=== PATIENT | female | born 1945 | race Caucasian/White ===

== ENCOUNTER 2017-07-23 13:37 | Emergency (ER) | payer MEDICARE ==
[2017-07-23 14:00] VITALS: BP 130/72
--- NOTE | 2017-07-23 14:16 | ED Physician Documentation ---
PD HPI SKIN - Stated complaint Stated Complaint: ARM SWOLLEN/VACCINATION AREA - Chief complaint Chief Complaint: Wound - History obtained from History obtained from: Patient - History of Present Illness Timing - onset: Other (71-year-old woman new to the area with history of fibromyalgia, she had the second of 2 Pneumovax shots to the right deltoid yesterday and immediately had pain and redness and warmth there without fevers. She has difficulty lifting her arm because of the pain but it is not too bad at rest and she did not sleep well because of it. There is no associated chest pain, shortness of breath.) Review of Systems Constitutional: denies: Fever, Chills Cardiac: denies: Chest pain / pressure, Palpitations Respiratory: denies: Dyspnea, Cough PD PAST MEDICAL HISTORY - Present Medications Home Medications: Ambulatory Orders Medication Instructions Recorded Confirmed Gabapentin [Neurontin] 200 mg PO DAILY PM 07/23/17 07/23/17 HYDROcod/ACETAM 5/325 [[place] 5/325] 1 - 2 ea PO Q6H PRN #10 tablet 07/23/17 traZODone [Desyrel] 50 mg PO HS 07/23/17 07/23/17 - Allergies Allergies/Adverse Reactions: Allergies Allergy/AdvReac Type Severity Reaction Status Date / Time aspirin Allergy Unknown Verified 07/23/17 14:00 Iodinated Contrast- Oral and Allergy Unknown Verified 07/23/17 14:00 IV Dye NSAIDS (Non-Steroidal Allergy Unknown Verified 07/23/17 14:00 Anti-Inflamma PD ED PE NORMAL - Vitals Vital signs reviewed: Yes - General General: Alert and oriented X 3, No acute distress - HEENT HEENT: Pharynx benign - Cardiac Cardiac: RRR, No murmur - Respiratory Respiratory: No respiratory distress, Clear bilaterally - Extremities Extremities: Other (Over the right deltoid there is a small patch of redness and swelling consistent with a localized vaccine reaction, no pain out of proportion to exam. She winces when she abducts the right shoulder but is comfortable otherwise at rest.) - Neuro Neuro: Alert and oriented X 3, Normal speech Results - Vitals Vitals: Vital Signs - 24 hr 07/23/17 13:54 Temperature 37.1 C Heart Rate 66 Respiratory 16 Rate Blood Pressure 130/72 O2 Saturation 96 Oxygen O2 Source Room air PD MEDICAL DECISION MAKING - ED course ED course: 71-year-old woman with fibromyalgia presents with a vaccine reaction, localized reaction without evidence of infection. Departure - Departure Disposition: 01 Home, Self Care Clinical Impression: Vaccine reaction Qualifiers: Encounter type: initial encounter Qualified Code(s): T50.Z95A - Adverse effect of other vaccines and biological substances, initial encounter Condition: Good Record reviewed to determine appropriate education?: Yes Prescriptions: HYDROcod/ACETAM 5/325 [[place] 5/325] 1 - 2 ea PO Q6H PRN #10 tablet PRN Reason: Pain Comments: Return for fever, if not better in a few days or if worsening. Call your doctor to arrange a follow-up appointment, make the next available appointment. In the interim, return anytime if worse or if new symptoms develop. Do not drink or drive while taking narcotic pain medication. Note that many narcotic pain relievers also contain Tylenol/acetaminophen. Please ensure that your total dose of acetaminophen from all sources does not exceed 3 g (3000 mg) per day. You may get constipated while on this medication. Take a stool softener such as Colace twice a day while you are on it. Also add an aegv-ruo-mcoqwwx laxative such as senna or MiraLAX on any day that you do not have a bowel movement. If you received a narcotic pain medication or sedative while in the emergency department, do not drive for the next 24 hours.
== END 2017-07-23 14:21 | disposition home or self-care (01) ==
LOC: ED 13:37
DX: M79.89 Other specified soft tissue disorders (principal); T50.Z95A Adverse effect of other vaccines and biological substances, initial encounter
CPT/HCPCS: 99283

== ENCOUNTER 2017-08-04 08:30 | Emergency (ER) | payer MEDICARE ==
[2017-08-04] MEDS ORDERED: ONDANSETRON 4 MG/2 ML VIAL IVP STA (08:57)
[2017-08-04] MEDS ORDERED: MORPHINE 10 MG/ML VIAL IVP STA (08:57)
--- NOTE | 2017-08-04 09:00 | ED Physician Documentation ---
History of Present Illness - Stated complaint Stated Complaint: BODY PAIN - Chief complaint Chief Complaint: General - Additonal information Additional information: 71-year-old female with history of fibromyalgia presents to the emergency department with left flank pain for approximately 24 hours. She reports that the pain has been constant and severe, she had nausea and vomiting last night. She also reports urinary frequency overnight last night. She had chills but does not feel that she had a fever.She does not have any abdominal pain. She has taken no medication for pain prior to arrival. Review of Systems Constitutional: reports: Chills Cardiac: denies: Chest pain / pressure Respiratory: denies: Dyspnea GI: reports: Vomiting : reports: Frequency. denies: Dysuria, Hematuria Musculoskeletal: reports: Back pain Neurologic: denies: Altered mental status PD PAST MEDICAL HISTORY - Past Medical History Past Medical History: Yes Musculoskeletal: Fibromyalgia - Past Surgical History Past Surgical History: No - Present Medications Home Medications: Ambulatory Orders Medication Instructions Recorded Confirmed Gabapentin [Neurontin] 200 mg PO DAILY PM 07/23/17 08/04/17 traZODone [Desyrel] 50 mg PO HS 07/23/17 08/04/17 Lidocaine Patch 5% [Lidoderm Patch] 1 patch TOP DAILY PRN #10 patch 08/04/17 traMADol [Ultram] 50 mg PO Q6H PRN #10 tablet 08/04/17 - Allergies Allergies/Adverse Reactions: Allergies Allergy/AdvReac Type Severity Reaction Status Date / Time aspirin Allergy Unknown Verified 08/04/17 08:39 Iodinated Contrast- Oral and Allergy Unknown Verified 08/04/17 08:39 IV Dye NSAIDS (Non-Steroidal Allergy Unknown Verified 08/04/17 08:39 Anti-Inflamma - Social History Does the pt smoke?: No Smoking Status: Never smoker Does the pt drink ETOH?: No Does the pt have substance abuse?: No - Immunizations Immunizations are current?: Yes - POLST Patient has POLST: No PD ED PE NORMAL - Vitals Vital signs reviewed: Yes - General General: Alert and oriented X 3, No acute distress - HEENT HEENT: PERRL - Neck Neck: Supple, no meningeal sign - Cardiac Cardiac: RRR, No murmur - Respiratory Respiratory: Clear bilaterally - Abdomen Abdomen: Normal bowel sounds, Soft, Non tender, Non distended - Back Back: Other (left CVA TTP ) - Derm Derm: Warm and dry - Extremities Extremities: No deformity - Neuro Neuro: Alert and oriented X 3 - Psych Psych: Normal mood, Normal affect Results - Vitals Vitals: Vital Signs - 24 hr 08/04/17 08/04/17 08:34 10:08 Temperature 36.9 C 37.1 C Heart Rate 70 56 L Respiratory 18 16 Rate Blood Pressure 145/79 H 144/77 H O2 Saturation 95 95 Oxygen O2 Source Room air - Labs Labs: Laboratory Tests 08/04/17 08/04/17 08/04/17 09:09 09:09 09:09 WBC 8.2 RBC 5.16 Hgb 15.0 Hct 44.4 MCV 86.0 MCH 29.1 MCHC 33.9 RDW 12.9 Plt Count 233 MPV 7.7 L Neut # 6.2 Lymph # 1.5 [place] # 0.5 Eos # 0.0 Baso # 0.1 Absolute Nucleated RBC 0.00 Nucleated RBC % 0.0 Sodium 137 Potassium 4.2 Chloride 99 L Carbon Dioxide 25 Anion Gap 13.0 BUN 14 Creatinine 1.1 H Estimated GFR (MDRD) 49 L Glucose 157 H Calcium 9.4 Total Bilirubin 0.7 AST 23 ALT 14 Alkaline Phosphatase 53 Total Protein 7.9 Albumin 3.9 Globulin 4.0 Albumin/Globulin Ratio 1.0 Urine Color YELLOW Urine Clarity CLEAR Urine pH 7.0 Ur Specific [place] 1.015 Urine Protein NEGATIVE Urine Glucose (UA) NEGATIVE Urine Ketones NEGATIVE Urine Occult Blood NEGATIVE Urine Nitrite NEGATIVE Urine Bilirubin NEGATIVE Urine Urobilinogen 0.2 (NORMAL) Ur Leukocyte Esterase NEGATIVE Urine WBC - Rads (name of study) CT abd pel w/o contrast Radiology: Final report received (IMPRESSION: 1 no acute findings. 2 sigmoid diverticulosis.) PD MEDICAL DECISION MAKING - ED course ED course: Left-sided flank pain and CVA tenderness with urinary frequency. Suspect either UTI with pyelonephritis or nephro or ureterolithiasis given location pain. Low suspicion for abdominal aortic aneurysm or dissection given patient' s well appearance and minimal risk factors. Additionally patient is allergic to iodinated contrast. Will obtain CT without contrast. Patient has a CT that has returned with no acute findings to explain her flank pain, her urinalysis had no evidence of infection.I suspect that this may be acute on chronic pain related to musculoskeletal disease or fibromyalgia. She was given a dose of tramadol and a lidocaine patch in the emergency department. I discussed with her return precautions and follow-up with her primary care doctor for further workup. Departure - Departure Disposition: 01 Home, Self Care Clinical Impression: Back pain Qualifiers: Back pain location: thoracic back pain Chronicity: acute Back pain laterality: left Qualified Code(s): M54.6 - Pain in thoracic spine Vomiting Qualifiers: Vomiting type: unspecified Vomiting Intractability: non-intractable Condition: Good Instructions: ED Chronic Pain Management, ED Abdominal Pain Unkn Cause Prescriptions: Lidocaine Patch 5% [Lidoderm Patch] 1 patch TOP DAILY PRN #10 patch PRN Reason: Pain traMADol [Ultram] 50 mg PO Q6H PRN #10 tablet PRN Reason: Pain Comments: Make an appointment follow-up with your primary care doctor this week. We did not find an exact cause for your pain, your head CT did not show any kidney stones and your urine test did not show evidence of infection. This may be an exacerbation or flareup of her chronic pain. You should talk to your doctor about management of chronic pain. There may be more testing that your doctor could perform to try to figure out what is causing her pain. Return to the emergency department if you develop severe pain, vomiting, fevers , inability to eat or drink.
[2017-08-04] MEDS ORDERED: MORPHINE 2 MG/ML SYRINGE ONE (09:06)
[2017-08-04] MEDS ORDERED: ONDANSETRON 4 MG/2 ML VIAL ONE (09:06)
[2017-08-04 09:23] LABS: BASOPHILS # (AUTO) 0.1 10^3/uL (0.0-0.1); BASOPHILS % (AUTO) 0.7 %; EOSINOPHILS % (AUTO) 0.5 %; HCT - HEMATOCRIT 44.4 % (37.0-47.0); LYMPHOCYTES # (AUTO) 1.5 10^3/uL (1.5-3.5); MEAN CORPUSCULAR HEMOGLOBIN 29.1 pg (27.0-31.0); MEAN CORPUSCULAR HGB CONC 33.9 g/dL (32.0-36.0); MEAN PLATELET VOLUME 7.7 fL (7.9-10.8); MONOCYTES # (AUTO) 0.5 10^3/uL (0.0-1.0); MONOCYTES % (AUTO) 5.8 %; NEUTROPHILS # (AUTO) 6.2 10^3/uL (1.5-6.6); RED BLOOD COUNT 5.16 10^6/uL (4.20-5.40); RED CELL DISTRIBUTION WIDTH 12.9 % (12.0-15.0); UNCORRECTED WHITE BLOOD COUNT 8.2 x10^3/uL; WHITE BLOOD COUNT 8.2 x10^3/uL (4.8-10.8)
[2017-08-04 09:34] LABS: BILIRUBIN,URINE NEGATIVE (NEGATIVE)
--- NOTE | 2017-08-04 09:46 | CT Preliminary Report ---
Exam: CT ABDOMEN/PELVIS W/O IMPRESSION: 1. No acute findings. 2. Sigmoid diverticulosis. [facility] SITE ID: [id number]
--- NOTE | 2017-08-04 09:49 | CT Report ---
EXAM: CT ABDOMEN AND PELVIS EXAM DATE: 08/04/2017 09:31 AM. CLINICAL HISTORY: Left flank pain COMPARISONS: None. TECHNIQUE: Routine helical CT imaging was performed through the abdomen and pelvis. IV contrast: None . Enteric contrast: No. Reconstructions: Coronal and sagittal. In accordance with CT protocol optimization, one or more of the following dose reduction techniques w ere utilized for this exam: automated exposure control, adjustment of mA and/or KV based on patient s ize, or use of iterative reconstructive technique. FINDINGS: Lung Bases: Unremarkable. Liver: Normal. No masses. Gallbladder/Bile Ducts: Unremarkable. Spleen: Normal. Pancreas: Normal. Adrenal Glands: Normal. Kidneys: Normal. No masses or hydronephrosis. No stones. Peritoneal Cavity/Bowel: Sigmoid diverticulosis is present. No dilatation. The appendix is well visua lized and normal. Pelvic Organs: Hysterectomy has been performed. The bladder is unremarkable. Vasculature: Arterial calcifications indicate atherosclerosis. Aortic calcifications are seen. Bones: No significant abnormality. Other: None. IMPRESSION: 1. No acute findings. 2. Sigmoid diverticulosis. [facility] Referring Provider Line: [phone] SITE ID: [id number]
[2017-08-04 09:51] LABS: BILIRUBIN,TOTAL 0.7 mg/dL (0.2-1.0); CALCIUM 9.4 mg/dL (8.5-10.3); CREATININE 1.1 mg/dL (0.4-1.0); POTASSIUM 4.2 mmol/L (3.5-5.0); TOTAL PROTEIN 7.9 g/dL (6.7-8.2)
[2017-08-04 10:09] VITALS: BP 144/77
[2017-08-04] MEDS ORDERED: traMADol 50 MG TABLET PO STA (10:36)
[2017-08-04] MEDS ORDERED: ACETAMINOPHEN 325 MG TABLET PO STA (10:36)
[2017-08-04] MEDS ORDERED: traMADol 50 MG TABLET PO ONE (10:45)
[2017-08-04] MEDS ORDERED: ACETAMINOPHEN 325 MG TABLET PO ONE (10:45)
== END 2017-08-04 10:57 | disposition home or self-care (01) ==
LOC: ED 08:30
DX: M54.6 Pain in thoracic spine (principal); R10.32 Left lower quadrant pain; R11.2 Nausea with vomiting, unspecified; M79.7 Fibromyalgia; G89.29 Other chronic pain
CPT/HCPCS: 36415; 74176; 80053; 81001; 85025; 96374; 96375; 99283; A9270; J2270

== ENCOUNTER 2017-08-09 18:51 | Emergency (ER) | payer MEDICARE ==
[2017-08-09 19:18] LABS: BASOPHILS # (AUTO) 0.1 10^3/uL (0.0-0.1); BASOPHILS % (AUTO) 0.7 %; EOSINOPHILS % (AUTO) 0.4 %; HCT - HEMATOCRIT 46.8 % (37.0-47.0); HGB - HEMOGLOBIN 15.4 g/dL (12.0-16.0); LYMPHOCYTES # (AUTO) 0.9 10^3/uL (1.5-3.5); LYMPHOCYTES % (AUTO) 10.4 %; MEAN CORPUSCULAR HEMOGLOBIN 28.4 pg (27.0-31.0); MEAN CORPUSCULAR VOLUME 86.1 fL (81.0-99.0); MEAN PLATELET VOLUME 7.5 fL (7.9-10.8); MONOCYTES # (AUTO) 0.9 10^3/uL (0.0-1.0); MONOCYTES % (AUTO) 10.6 %; NEUTROPHILS # (AUTO) 6.7 10^3/uL (1.5-6.6); NEUTROPHILS % (AUTO) 77.9 %; RED BLOOD COUNT 5.44 10^6/uL (4.20-5.40); RED CELL DISTRIBUTION WIDTH 13.3 % (12.0-15.0); UNCORRECTED WHITE BLOOD COUNT 8.6 x10^3/uL; WHITE BLOOD COUNT 8.6 x10^3/uL (4.8-10.8)
[2017-08-09] MEDS ORDERED: ONDANSETRON ODT 4 MG Prepack 2 TL STA (19:25)
[2017-08-09] MEDS ORDERED: GABAPENTIN 100 MG CAPSULE PO STA (19:25)
[2017-08-09] MEDS ORDERED: valACYclovir 500 MG TABLET PO STA (19:25)
[2017-08-09] MEDS ORDERED: ONDANSETRON ODT 4 MG TABLET TL STA (19:25)
--- NOTE | 2017-08-09 19:27 | ED Physician Documentation ---
PD HPI ABD PAIN - Stated complaint Stated Complaint: SOA/BACK PX/V - Chief complaint Chief Complaint: Resp - History obtained from History obtained from: Patient - History of Present Illness Timing - onset: Other (She has had ongoing pain in the left side of the abdomen for about a week now. She was seen here earlier this week, concern for kidney stone because it started in the left flank, CT scan was negative except for diverticulosis. She continues to have pain and she feels achy and febrile and vomiting at times. She is a little constipated but she is not eating well.) Review of Systems Constitutional: reports: Chills, Myalgias, Fatigue Nose: reports: Rhinorrhea / runny nose. denies: Congestion Cardiac: denies: Chest pain / pressure, Palpitations Respiratory: denies: Dyspnea, Cough GI: reports: Abdominal Pain, Nausea, Vomiting. denies: Diarrhea PD PAST MEDICAL HISTORY - Past Medical History Musculoskeletal: Fibromyalgia - Past Surgical History Past Surgical History: No - Present Medications Home Medications: Ambulatory Orders Medication Instructions Recorded Confirmed Gabapentin [Neurontin] 200 mg PO DAILY PM 07/23/17 08/09/17 traZODone [Desyrel] 50 mg PO HS 07/23/17 08/09/17 Acyclovir 800 mg PO 5XD 10 Days tablet 08/09/17 Gabapentin 300 mg PO TID #90 capsule 08/09/17 Oxycodone HCl/Acetaminophen 1 - 2 tab PO Q4H PRN #15 tablet 08/09/17 [Percocet 5-325 mg Tablet] - Allergies Allergies/Adverse Reactions: Allergies Allergy/AdvReac Type Severity Reaction Status Date / Time aspirin Allergy Unknown Verified 08/09/17 19:03 Iodinated Contrast- Oral and Allergy Unknown Verified 08/09/17 19:03 IV Dye NSAIDS (Non-Steroidal Allergy Unknown Verified 08/09/17 19:03 Anti-Inflamma - Social History Does the pt smoke?: No Smoking Status: Never smoker Does the pt drink ETOH?: No Does the pt have substance abuse?: No - Immunizations Immunizations are current?: Yes - POLST Patient has POLST: No PD ED PE NORMAL - Vitals Vital signs reviewed: Yes - General General: Alert and oriented X 3, No acute distress - Neck Neck: Supple, no meningeal sign, No bony TTP - Cardiac Cardiac: RRR, No murmur - Respiratory Respiratory: No respiratory distress, Clear bilaterally - Abdomen Abdomen: Normal bowel sounds, Soft, Non tender, Other (She has a clear area of herpes zoster extending along the left mid abdomen.) - Extremities Extremities: No deformity, No tenderness to palpate, No calf tenderness / cord - Neuro Neuro: Alert and oriented X 3, Normal speech - Psych Psych: Normal mood, Normal affect Results - Vitals Vitals: Vital Signs - 24 hr 08/09/17 18:57 Temperature 37.2 C Heart Rate 99 Respiratory 18 Rate Blood Pressure 150/81 H O2 Saturation 94 Oxygen O2 Source Room air - EKG (time done) 1907 Rate: Rate (enter#) (65) Rhythm: NSR [place]: Normal Intervals: Normal [place] QRS: Normal Ischemia: Q waves (III/F) - Labs Labs: Laboratory Tests 08/09/17 19:13 WBC 8.6 RBC 5.44 H Hgb 15.4 Hct 46.8 MCV 86.1 MCH 28.4 MCHC 33.0 RDW 13.3 Plt Count 248 MPV 7.5 L Neut # 6.7 H Lymph # 0.9 L [place] # 0.9 Eos # 0.0 Baso # 0.1 Absolute Nucleated RBC 0.00 Nucleated RBC % 0.0 PD MEDICAL DECISION MAKING - ED course ED course: She had undifferentiated abdominal pain which is now declared itself as herpes zoster. For which she is treated. Steroids are held given the history of diabetes, this is not active now, on previous evaluation her blood sugar was in the 150s, I believe that this makes the risk of steroid treatment outweigh the benefits. Departure - Departure Disposition: 01 Home, Self Care Clinical Impression: Herpes zoster Qualifiers: Herpes zoster complications: without complications Qualified Code(s): B02.9 - Zoster without complications Condition: Good Record reviewed to determine appropriate education?: Yes Instructions: ED Shingles Prescriptions: Acyclovir 800 mg PO 5XD 10 Days tablet Gabapentin 300 mg PO TID #90 capsule Oxycodone HCl/Acetaminophen [Percocet 5-325 mg Tablet] 1 - 2 tab PO Q4H PRN #15 tablet PRN Reason: Pain Comments: Call your doctor to arrange a follow-up appointment, make the next available appointment. In the interim, return anytime if worse or if new symptoms develop. Your blood pressure was elevated today on check into the emergency department. This does not mean that you have hypertension, it is a common phenomenon to come to the emergency department and have elevated blood pressure. I recommend that you see your primary care physician within the week to have it rechecked when you are feeling better. Do not drink or drive while taking narcotic pain medication. Note that many narcotic pain relievers also contain Tylenol/acetaminophen. Please ensure that your total dose of acetaminophen from all sources does not exceed 3 g (3000 mg) per day. You may get constipated while on this medication. Take a stool softener such as Colace twice a day while you are on it. Also add an jful-thy-rwvecoh laxative such as senna or MiraLAX on any day that you do not have a bowel movement. If you received a narcotic pain medication or sedative while in the emergency department, do not drive for the next 24 hours.
[2017-08-09 19:31] LABS: ALBUMIN/GLOBULIN RATIO 1.1 (1.0-2.2); BILIRUBIN,TOTAL 1.3 mg/dL (0.2-1.0); CALCIUM 9.4 mg/dL (8.5-10.3); CREATININE 1.2 mg/dL (0.4-1.0); POTASSIUM 3.5 mmol/L (3.5-5.0); TOTAL PROTEIN 7.5 g/dL (6.7-8.2)
[2017-08-09] MEDS ORDERED: ONDANSETRON ODT 4 MG Prepack 2 TL ONE (19:46)
[2017-08-09] MEDS ORDERED: valACYclovir 500 MG TABLET ONE (19:46)
[2017-08-09] MEDS ORDERED: ONDANSETRON ODT 4 MG TABLET ONE (19:46)
[2017-08-09] MEDS ORDERED: GABAPENTIN 300 MG CAPSULE ONE (19:46)
[2017-08-09 19:53] VITALS: BP 152/77
== END 2017-08-09 20:08 | disposition home or self-care (01) ==
LOC: ED 18:51
DX: B02.9 Zoster without complications (principal); R03.0 Elevated blood-pressure reading, without diagnosis of hypertension; R94.31 Abnormal electrocardiogram [ECG] [EKG]
CPT/HCPCS: 36415; 80053; 83690; 84484; 85025; 93005; 99283; 99284; A9270; Q0162

== ENCOUNTER 2019-07-02 16:33 | Outpatient (CLI) | payer MEDICARE ==
--- NOTE | 2019-07-03 08:41 | XRAY Report ---
Reason: COUGH Procedure Date: 07/02/2019 Accession Number: [id number] / [id number] Procedure: XR - Chest 2 View X-Ray CPT Code: 41902 Final Report FULL RESULT: EXAM: CHEST RADIOGRAPHY 2 VIEWS EXAM DATE: 07/02/2019. CLINICAL HISTORY: Cough. COMPARISON: Noncontrast abdomen and pelvis CT done 08/04/2017.. TECHNIQUE: PA and lateral views. FINDINGS: Lungs/Pleura: Normal vasculature. Opacity in the anterior left lower chest and loss of definition of the left heart border, appears more extensive than the fat pad demonstrated on the CT, and may represent an acute infiltrate. The lungs are otherwise clear. No pleural effusion or pneumothorax. Mediastinum: Normal cardiac and mediastinal contours. Atherosclerosis of the aorta. Bones: Mild degenerative changes of the spine. IMPRESSION: Opacity in the anterior left lower chest appears more extensive than the fat pad demonstrated on the prior CT and may represent acute atelectasis or pneumonia in the lingula, versus enlargement of the fat. Recommend follow-up chest radiography in 2-3 weeks. Otherwise normal for age. [facility]
== END 2019-07-02 16:34 | disposition home or self-care (01) ==
LOC: DI 16:33
PROVIDERS: ATTEND Internal Medicine
DX: R91.8 Other nonspecific abnormal finding of lung field (principal)
CPT/HCPCS: 71046

== ENCOUNTER 2019-12-01 08:00 | Outpatient (CLI) | payer MEDICARE | END 2019-12-01 23:59 | disposition home or self-care (01) | LOC: COV 08:00 | PROVIDERS: ATTEND Family Medicine | DX: R05 Cough (principal) | CPT/HCPCS: 81599 ==

== ENCOUNTER 2020-02-08 13:16 | Outpatient (CLI) | payer MEDICARE ==
--- NOTE | 2020-02-16 09:43 | Mammography Report ---
BILATERAL DIGITAL SCREENING MAMMOGRAM 3D/2D: 02/08/2020 CLINICAL: Routine screening. No prior exams were available for comparison. The tissue of both breasts is predominantly fatty. There are benign calcifications in both breasts. No significant masses, calcifications, or other findings are seen in either breast. IMPRESSION: There is no mammographic evidence of malignancy. A 1 year screening mammogram is recommended. This exam was interpreted at Station ID: [id number]. NOTE: For mammograms, a report in lay terms will be sent to the patient. Approximately 15% of breast malignancies will not be visualized mammographically. In the management of a palpable breast mass, a negative mammogram must not discourage biopsy of a clinically suspicious lesion. Electronically Signed By: Logan conway/summer:02/15/2020 17:15:26 ACR BI-RADS Category 2: Benign Finding(s) 3342F PARENCHYMAL PATTERN: (F) - The breast(s) demonstrate(s) diffuse fatty replacement. BI-RADS CATEGORY: (2) - 2 RECOMMENDATION: (ANNUAL) - Recommend routine annual screening mammography. [id number] 1 year screening LATERALITY: (B)
== END 2020-02-08 13:17 | disposition home or self-care (01) ==
LOC: DI 13:16
PROVIDERS: ATTEND Internal Medicine
DX: Z12.31 Encounter for screening mammogram for malignant neoplasm of breast (principal)
CPT/HCPCS: 77063; 77067

== ENCOUNTER 2020-11-22 14:25 | Outpatient (CLI) | payer MEDICARE ==
--- NOTE | 2020-11-22 16:07 | XRAY Report ---
PROCEDURE: Hand 3 View LT INDICATIONS: F/U INFILTRATE,L HAND PAIN TECHNIQUE: 3 views of the hand(s) acquired. COMPARISON: None FINDINGS: Bones: No fractures or dislocations. No suspicious bony lesions. Scattered areas of mild to modera te IP degenerative narrowing. Mild to moderate first CMC degenerative narrowing. No gross erosions. M inimal periarticular osteophytes. Radiocarpal narrowing is present. Soft tissues: No suspicious soft tissue calcifications. IMPRESSION: First CMC and IP arthritic changes as above. Reviewed by: Beverley Ulloa MD on 11/22/2020 4:06 PM PDT Approved by: Beverley Ulloa MD on 11/22/2020 4:06 PM PDT Station ID: [id number]
--- NOTE | 2020-11-22 16:08 | XRAY Report ---
PROCEDURE: Chest 2 View X-Ray INDICATIONS: F/U INFILTRATE,L HAND PAIN TECHNIQUE: 2 view(s) of the chest. COMPARISON: 07/02/2019 FINDINGS: Surgical changes and devices: None. Lungs and pleura: No pleural effusions or pneumothorax. Decreased appearance of left lower lobe opac ity within the region of cardiac fat pad. Mediastinum: Mediastinal contours are normal. Heart size is normal. Cardiac fat pad is noted. Bones and chest wall: No suspicious bony abnormalities. Soft tissues appear unremarkable. IMPRESSION: Decreased appearance of previous left lower lobe opacity within the region cardiac fat. Reviewed by: Beverley Ulloa MD on 11/22/2020 4:07 PM PDT Approved by: Beverley Ulloa MD on 11/22/2020 4:07 PM PDT Station ID: [id number]
== END 2020-11-22 14:26 | disposition home or self-care (01) ==
LOC: DI 14:25
PROVIDERS: ATTEND Internal Medicine
DX: R91.8 Other nonspecific abnormal finding of lung field (principal); M18.12 Unilateral primary osteoarthritis of first carpometacarpal joint, left hand; M19.042 Primary osteoarthritis, left hand

== ENCOUNTER 2020-12-07 11:51 | Outpatient (CLI) | payer MEDICARE ==
[2020-12-07 12:24] LABS: BASOPHILS % (AUTO) 0.4 %; EOSINOPHILS % (AUTO) 0.3 %; HCT - HEMATOCRIT 47.6 % (37.0-47.0); HGB - HEMOGLOBIN 16.4 g/dL (12.0-16.0); LYMPHOCYTES # (AUTO) 1.6 10^3/uL (1.5-3.5); LYMPHOCYTES % (AUTO) 17.4 %; MEAN CORPUSCULAR HGB CONC 34.5 g/dL (32.0-36.0); MEAN PLATELET VOLUME 9.2 fL (7.9-10.8); MONOCYTES # (AUTO) 0.6 10^3/uL (0.0-1.0); NEUTROPHILS # (AUTO) 6.6 10^3/uL (1.5-6.6); NEUTROPHILS % (AUTO) 74.7 %; PLT - PLATELET COUNT 270 10^3/uL (130-450); RED BLOOD COUNT 5.47 10^6/uL (4.20-5.40); RED CELL DISTRIBUTION WIDTH 12.4 % (12.0-15.0); WHITE BLOOD COUNT 8.9 x10^3/uL (4.8-10.8)
[2020-12-07 12:53] LABS: ALBUMIN 4.4 g/dL (3.2-5.5); ALBUMIN/GLOBULIN RATIO 1.2 (1.0-2.2); BILIRUBIN,TOTAL 0.9 mg/dL (0.2-1.0); CALCIUM 9.7 mg/dL (8.5-10.3); POTASSIUM 3.9 mmol/L (3.5-5.0); TOTAL PROTEIN 8.2 g/dL (6.7-8.2)
== END 2020-12-07 11:52 | disposition home or self-care (01) ==
LOC: LAB 11:51
PROVIDERS: ATTEND Internal Medicine
DX: R10.9 Unspecified abdominal pain (principal); R11.2 Nausea with vomiting, unspecified; R68.83 Chills (without fever)
CPT/HCPCS: 36415; 80053; 82150; 83605; 83690; 85025; 87040

== ENCOUNTER 2020-12-09 11:06 | Emergency (ER) | payer MEDICARE ==
--- OUTSIDE RECORDS SUMMARY | 2020-12-09 11:28 | EXTERNAL MEDICAL SUMMARY RPT | Continuity of Care Document ---
:1945 Demographics Phone Unavailable Preferred Language Unknown Marital Status Unknown Anglican Affiliation Unknown Race Unknown Ethnic Group Unknown Author Organization [facility] Address [address] [phone] Phone Social History date description facility [phone]
[2020-12-09] MEDS ORDERED: HALOPERIDOL 5 MG/ML VIAL IVP ONE (11:43)
[2020-12-09] MEDS ORDERED: SODIUM CHLORIDE 0.9% 1,000 ML IV STA ×2 (11:43→13:13)
[2020-12-09 11:54] LABS: BASOPHILS % (AUTO) 0.6 %; EOSINOPHILS % (AUTO) 0.3 %; HCT - HEMATOCRIT 46.6 % (37.0-47.0); LYMPHOCYTES # (AUTO) 1.4 10^3/uL (1.5-3.5); LYMPHOCYTES % (AUTO) 19.4 %; MEAN CORPUSCULAR HGB CONC 34.3 g/dL (32.0-36.0); MEAN CORPUSCULAR VOLUME 87.3 fL (81.0-99.0); MEAN PLATELET VOLUME 9.4 fL (7.9-10.8); MONOCYTES # (AUTO) 0.5 10^3/uL (0.0-1.0); MONOCYTES % (AUTO) 6.4 %; NEUTROPHILS # (AUTO) 5.2 10^3/uL (1.5-6.6); PLT - PLATELET COUNT 244 10^3/uL (130-450); RED BLOOD COUNT 5.34 10^6/uL (4.20-5.40); RED CELL DISTRIBUTION WIDTH 12.6 % (12.0-15.0); WHITE BLOOD COUNT 7.2 x10^3/uL (4.8-10.8)
[2020-12-09 12:01] LABS: ALBUMIN 4.1 g/dL (3.2-5.5); ALBUMIN/GLOBULIN RATIO 1.1 (1.0-2.2); BILIRUBIN,TOTAL 0.9 mg/dL (0.2-1.0); CALCIUM 9.5 mg/dL (8.5-10.3); CREATININE 1.1 mg/dL (0.4-1.0); POTASSIUM 3.8 mmol/L (3.5-5.0); TOTAL PROTEIN 7.8 g/dL (6.7-8.2)
--- NOTE | 2020-12-09 12:23 | ED Physician Documentation ---
PD HPI NVD - Stated complaint Stated Complaint: NAUSEA - Chief complaint Chief Complaint: Abd Pain - History obtained from History obtained from: Patient - History of Present Illness Timing - onset: How many days ago (10) Timing - duration: Days (10) Timing - details: Gradual onset, Still present, Waxing and waning Associated symptoms: Abdominal pain, Loss of appetite, Other (nausea is severe) Improved by: Meds (some temporary improvement with zofran) Worsened by: Eating Similar symptoms before: Has not had sx before Recently seen: Not recently seen - Additonal information Additional information: 75-year-old female with a history of irritable bowel syndrome and fibromyalgia has developed acute nausea beginning about 10 days ago and this nausea is severe. Patient states that she has been in to see her regular doctor she was given some pills for under the tongue and these may be helpful for a very brief period of time. She has so much nausea that she felt lightheaded like last night that she would be more comfortable if she just did not wake up. Review of Systems Constitutional: reports: Fatigue. denies: Fever Eyes: denies: Decreased vision Ears: denies: Ear pain Nose: denies: Congestion Throat: denies: Sore throat Cardiac: denies: Chest pain / pressure, Palpitations Respiratory: denies: Dyspnea, Cough GI: reports: Abdominal Pain, Nausea, Vomiting. denies: Constipation, Diarrhea : denies: Dysuria, Frequency Skin: denies: Rash Musculoskeletal: denies: Neck pain, Back pain, Extremity pain Neurologic: denies: Generalized weakness, Focal weakness, Numbness PD PAST MEDICAL HISTORY - Past Medical History Cardiovascular: Hypertension, High cholesterol Respiratory: None Endocrine/Autoimmune: None GI: None BUILDING INSPECTION ENGINEER: None : Incontinence HEENT: None, Other Psych: Depression, Anxiety Musculoskeletal: None Derm: None - Past Surgical History Past Surgical History: Yes General: Appendectomy /BUILDING INSPECTION ENGINEER: Mastectomy HEENT: Cataracts - Present Medications Home Medications: Ambulatory Orders Medication Instructions Recorded Confirmed Gabapentin [Neurontin] 200 mg PO DAILY PM 07/23/17 08/09/17 traZODone [Desyrel] 50 mg PO HS 07/23/17 08/09/17 Acyclovir 800 mg PO 5XD 10 Days tablet 08/09/17 Gabapentin 300 mg PO TID #90 capsule 08/09/17 Oxycodone HCl/Acetaminophen 1 - 2 tab PO Q4H PRN #15 tablet 08/09/17 [Percocet 5-325 mg Tablet] Promethazine [Phenergan] 25 mg PO Q6H PRN #10 tablet 12/09/20 - Allergies Allergies/Adverse Reactions: Allergies Allergy/AdvReac Type Severity Reaction Status Date / Time aspirin Allergy Unknown Verified 12/09/20 11:48 Iodinated Contrast Media Allergy Unknown Verified 12/09/20 11:48 NSAIDS (Non-Steroidal Allergy Unknown Verified 12/09/20 11:48 Anti-Inflamma - Social History Does the pt smoke?: No Smoking Status: Never smoker Does the pt drink ETOH?: No Does the pt have substance abuse?: No - Immunizations Immunizations are current?: Yes - POLST Patient has POLST: Yes PD ED PE NORMAL - Vitals Vital signs reviewed: Yes (Hypertensive) - General General: Alert and oriented X 3, Well developed/nourished, Other (dry appearing 75 y/o female is conversant. ) - HEENT HEENT: Atraumatic, PERRL, EOMI - Neck Neck: Supple, no meningeal sign - Cardiac Cardiac: RRR, No murmur - Respiratory Respiratory: No respiratory distress, Clear bilaterally - Abdomen Abdomen: Normal bowel sounds, Soft, Non distended, No organomegaly, Other (Generalized tenderness without guarding or rebound more tenderness to the right upper.) - Back Back: No CVA TTP, No spinal TTP - Derm Derm: Normal color, Warm and dry, No rash - Extremities Extremities: No deformity, No edema - Neuro Neuro: Alert and oriented X 3, No motor deficit, No sensory deficit, Normal s peech Eye Opening: Spontaneous Motor: Obeys Commands Verbal: Oriented GCS Score: 15 - Psych Psych: Normal mood, Normal affect Results - Vitals Vitals: Vital Signs - 24 hr 12/09/20 12/09/20 12/09/20 11:14 11:27 12:13 Temperature 36.5 C Heart Rate 67 62 54 L Respiratory 14 16 14 Rate Blood Pressure 186/111 H 169/100 H 167/79 H O2 Saturation 94 97 96 12/09/20 12/09/20 13:39 14:42 Temperature 36.8 C Heart Rate 75 59 L Respiratory 26 H 20 Rate Blood Pressure 196/64 H 198/84 H O2 Saturation 94 96 Oxygen O2 Source Room air - Labs Labs: Laboratory Tests 12/09/20 12/09/20 12/09/20 11:35 11:35 11:58 WBC 7.2 RBC 5.34 Hgb 16.0 Hct 46.6 MCV 87.3 MCH 30.0 MCHC 34.3 RDW 12.6 Plt Count 244 MPV 9.4 Neut # (Auto) 5.2 Lymph # (Auto) 1.4 L [place] # (Auto) 0.5 Eos # (Auto) 0.0 Baso # (Auto) 0.0 Absolute Nucleated RBC 0.00 Nucleated RBC % 0.0 Sodium 136 Potassium 3.8 Chloride 101 Carbon Dioxide 25 Anion Gap 10.0 BUN 16 Creatinine 1.1 H Estimated GFR (MDRD) 48 L Glucose 175 H Lactic Acid 1.0 Calcium 9.5 Total Bilirubin 0.9 AST 23 ALT 16 Alkaline Phosphatase 53 Total Protein 7.8 Albumin 4.1 Globulin 3.7 Albumin/Globulin Ratio 1.1 Lipase 36 Urine Color Urine Clarity Urine pH Ur Specific [place] Urine Protein Urine Glucose (UA) Urine Ketones Urine Occult Blood Urine Nitrite Urine Bilirubin Urine Urobilinogen Ur Leukocyte Esterase Ur Microscopic Review Urine Culture Comments 12/09/20 12:30 WBC RBC Hgb Hct MCV MCH MCHC RDW Plt Count MPV Neut # (Auto) Lymph # (Auto) [place] # (Auto) Eos # (Auto) Baso # (Auto) Absolute Nucleated RBC Nucleated RBC % Sodium Potassium Chloride Carbon Dioxide Anion Gap BUN Creatinine Estimated GFR (MDRD) Glucose Lactic Acid Calcium Total Bilirubin AST ALT Alkaline Phosphatase Total Protein Albumin Globulin Albumin/Globulin Ratio Lipase Urine Color DARK YELLOW Urine Clarity CLEAR Urine pH 6.0 Ur Specific [place] 1.025 Urine Protein NEGATIVE Urine Glucose (UA) NEGATIVE Urine Ketones 15 H Urine Occult Blood NEGATIVE Urine Nitrite NEGATIVE Urine Bilirubin NEGATIVE Urine Urobilinogen 0.2 (NORMAL) Ur Leukocyte Esterase NEGATIVE Ur Microscopic Review NOT INDICATED Urine Culture Comments NOT INDICATED Procedures - Bedside sono Bedside sono by EMP: Hydronephrosis on theBedside ultrasound the right kidney is imaged it is sonographically minimally tender and gallbladder the gallbladder is sonographically nontender and without obvious stone gallbladder wall thickening or pericholecystic fluid. - IVC sono (time) 1130 Bedside IVC sono: IVC measures (cm), Dehydration (est 2 liter deficit) PD MEDICAL DECISION MAKING - ED course Complexity details: reviewed old records, reviewed results, re-evaluated patient, considered differential, d/w patient ED course: 75-year-old female who is developed unrelenting nausea has not had relief with Zofran. She does admit to daily cannabis use. Today here in the emergency department we have administered Haldol and Benadryl to the patient with resolution of her nausea. We have sent the patient home with some Phenergan and I believe this may be related to her cannabis use. She will stop using this. 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
[2020-12-09] MEDS ORDERED: diphenhydrAMINE INJ 50 MG/ML VIAL IVP STA ×2 (12:30→12:31)
[2020-12-09 12:37] LABS: GLUCOSE, URINE (UA) NEGATIVE (NEGATIVE); KETONES,URINE (UA) 15 mg/dL (NEGATIVE); LEUKOCYTE ESTERASE, URINE NEGATIVE (NEGATIVE); NITRITE,URINE NEGATIVE (NEGATIVE); OCCULT BLOOD,URINE NEGATIVE (NEGATIVE); PROTEIN,URINE NEGATIVE (NEGATIVE); UROBILINOGEN,URINE 0.2 (NORMAL) E.U./dL (NORMAL)
[2020-12-09 12:41] LABS: CLARITY,URINE CLEAR (CLEAR)
[2020-12-09 12:42] LABS: BILIRUBIN,URINE NEGATIVE (NEGATIVE); ICTOTEST,URINE NEGATIVE
[2020-12-09 14:43] VITALS: BP 198/84
--- NOTE | 2020-12-09 15:02 | Ultrasound Report ---
PROCEDURE: Abdomen Limited INDICATIONS: RUQ pain TECHNIQUE: Real-time focused scanning was performed of the abdomen, with image documentation. COMPARISON: None FINDINGS: Liver is normal in size and homogeneous in echotexture. Liver is diffusely echogenic. No focal hepati c mass lesions. Gallbladder is within normal limits. No gallstones. No gallbladder wall thickening with gallbladder w all measuring 3.0 mm no pericholecystic fluid. No sonographic Hopper sign. Biliary tree is nondilated. Common bile duct measures 3.0 mm. Head and body of pancreas are sonographically normal. Tail was not well-visualized due to bowel gas a nd cannot be evaluated. Right kidney is sonographically normal. IMPRESSION: 1. No sonographic evidence of cholelithiasis or cholecystitis. If there is continued clinical concern for cholecystitis, a nuclear medicine HIDA scan should be considered for further evaluation. 2. Echogenic liver. Finding typically represents fatty infiltration, however the finding is nonspecif ic and other etiologies including hepatic cirrhosis can produce a similar appearance. Reviewed by: Mee Guaman MD, PhD on 12/09/2020 3:01 PM PDT Approved by: Mee Guaman MD, PhD on 12/09/2020 3:01 PM PDT Station ID: [id number]
== END 2020-12-09 14:44 | disposition home or self-care (01) ==
LOC: ED 11:06
DX: E86.0 Dehydration (principal); R11.0 Nausea; F12.188 Cannabis abuse with other cannabis-induced disorder; I10 Essential (primary) hypertension
CPT/HCPCS: 36415; 76705; 80053; 81003; 83605; 83690; 85025; 96361; 96374; 96375; 99284; J1200; 81001; 87086

== ENCOUNTER 2021-08-17 20:21 | Outpatient (CLI) | payer MEDICARE | END 2021-08-17 20:22 | disposition EMS.NT | LOC: EMS 20:21 | DX: R55 Syncope and collapse (principal) ==

== ENCOUNTER 2021-08-18 13:00 | Outpatient (CLI) | payer MEDICARE ==
[2021-08-18 13:11] LABS: BASOPHILS % (AUTO) 0.6 %; EOSINOPHILS # (AUTO) 0.1 10^3/uL (0.0-0.7); HCT - HEMATOCRIT 47.7 % (37.0-47.0); HGB - HEMOGLOBIN 15.8 g/dL (12.0-16.0); LYMPHOCYTES # (AUTO) 1.7 10^3/uL (1.5-3.5); LYMPHOCYTES % (AUTO) 25.3 %; MEAN CORPUSCULAR HEMOGLOBIN 29.3 pg (27.0-31.0); MEAN CORPUSCULAR HGB CONC 33.1 g/dL (32.0-36.0); MEAN CORPUSCULAR VOLUME 88.3 fL (81.0-99.0); MONOCYTES # (AUTO) 0.4 10^3/uL (0.0-1.0); MONOCYTES % (AUTO) 6.4 %; NEUTROPHILS # (AUTO) 4.4 10^3/uL (1.5-6.6); NEUTROPHILS % (AUTO) 66.4 %; PLT - PLATELET COUNT 122 10^3/uL (130-450); RED CELL DISTRIBUTION WIDTH 12.5 % (12.0-15.0); WHITE BLOOD COUNT 6.7 x10^3/uL (4.8-10.8)
[2021-08-18 13:21] LABS: ALBUMIN 3.8 g/dL (3.2-5.5); ALBUMIN/GLOBULIN RATIO 1.1 (1.0-2.2); BILIRUBIN,TOTAL 0.9 mg/dL (0.2-1.0); CALCIUM 9.6 mg/dL (8.5-10.3); CREATININE 1.1 mg/dL (0.4-1.0); POTASSIUM 4.2 mmol/L (3.5-5.0); TOTAL PROTEIN 7.3 g/dL (6.7-8.2)
== END 2021-08-18 13:01 | disposition home or self-care (01) ==
LOC: LAB 13:00 → LAB.R 13:01
PROVIDERS: ATTEND Internal Medicine
DX: K92.2 Gastrointestinal hemorrhage, unspecified (principal); R10.32 Left lower quadrant pain; Z79.899 Other long term (current) drug therapy; R55 Syncope and collapse
CPT/HCPCS: 80053; 85025

== ENCOUNTER 2021-11-08 09:12 | Day surgery (SDC) | payer MEDICARE ==
[2021-11-08] MEDS ORDERED: LACTATED RINGERS 1,000 ML IV ONE ×2 (09:34→11:33)
--- NOTE | 2021-11-08 10:30 | ANESTHESIA ---
Pre-Anesthesia VS, & Labs - Diagnosis screening colonoscopy - Procedure colonoscopy Height: 5 ft 7 in Weight (kg): 120 kg Body Mass Index: 41.4 BMI Classification: Morbidly Obese - NPO >8 hours - Is Patient ?: No - Lab Results Current Lab Results: Laboratory Tests 11/08/21 09:46: POC Whole Bld Glucose 183 H Home Medications and Allergies Home Medications: Ambulatory Orders HYDROcod/ACETAM 5/325 [[place] 5/325] 2 tab PO BID 11/07/21 Oxybutynin [Ditropan] 5 mg PO DAILY 11/07/21 HYDROcod/ACETAM 5/325 [[place] 5/325] 2 tab PO BID 11/07/21 Oxybutynin [Ditropan] 5 mg PO DAILY 11/07/21 Allergies/Adverse Reactions: Allergies Allergy/AdvReac Type Severity Reaction Status Date / Time aspirin Allergy Unknown Verified 11/08/21 09:44 Iodinated Contrast Media Allergy Unknown Verified 11/08/21 09:44 NSAIDS (Non-Steroidal Allergy Unknown Verified 11/08/21 09:44 Anti-Inflamma Anes History & Medical History - Anesthetic History Anesthesia Complications: reports: Post-Operative Nausea/Vomiting - Medical History Cardiovascular: reports: None Pulmonary: reports: Pneumonia, Sleep apnea Gastrointestinal: reports: Chronic diarrhea, Chronic constipation, Ulcerative colitis, Other Urinary: reports: None Musculoskeletal: reports: Osteoarthritis, Fibromyalgia, Fatigue, Chronic back pain Endocrine/Autoimmune: reports: None Blood Disorders: reports: None Skin: reports: Other Smoking Status: Never smoker 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
[2021-11-08] MEDS ORDERED: ONDANSETRON 4 MG/2 ML VIAL ONE (11:16)
[2021-11-08] MEDS ORDERED: LIDOCAINE-MPF 2% 5 ML VIAL ONE (11:21)
--- NOTE | 2021-11-08 11:46 | ANESTHESIA POST OP EVALUATION ---
Anesthesia Post Eval - Post Anesthesia Eval Vitals: Last Vital Signs Temp 36.6 C 11/08/21 11:31 Pulse 70 11/08/21 11:31 Resp 20 11/08/21 11:31 BP 143/60 H 11/08/21 11:31 Pulse Ox 95 11/08/21 11:31 CV Function Including HR & BP: Stable Pain Control: Satisfactory Nausea & Vomiting: Negative Mental Status: Baseline Respiratory Status: Airway Patent Hydration Status: Satisfactory Anesthesia Complications: None
[2021-11-08 12:04] VITALS: BP 138/85
== END 2021-11-08 09:13 | disposition home or self-care (01) ==
LOC: SDS 09:12
PROVIDERS: ATTEND Surgery
DX: K62.5 Hemorrhage of anus and rectum (principal); K57.30 Diverticulosis of large intestine without perforation or abscess without bleeding; K64.4 Residual hemorrhoidal skin tags; K64.8 Other hemorrhoids; E11.9 Type 2 diabetes mellitus without complications; E66.01 Morbid (severe) obesity due to excess calories; I10 Essential (primary) hypertension; Z68.41 Body mass index [BMI] 40.0-44.9, adult; Z86.010 Personal history of colon polyps; Z87.891 Personal history of nicotine dependence
CPT/HCPCS: 45378; J7120

== ENCOUNTER 2022-12-29 22:05 | Emergency (ER) | payer MEDICARE ==
[2022-12-29 22:15] VITALS: BP 199/121
--- NOTE | 2022-12-29 22:29 | ED Physician Documentation ---
History of Present Illness - Stated complaint Stated Complaint: VOMITING/CHEST PX - Chief complaint Chief Complaint: Cardiac - Additonal information Additional information: Patient 77-year-old female past medical significant for hypertension, dyslipidemia presenting to the emergency department with chest pain with associated nausea vomiting. Patient's symptoms began approximately 2 days ago. Reports multiple episodes nausea vomiting. States has had episodes like this in the past and in the past they were attributed to frequent marijuana use however she has not used marijuana frequently for some time. Endorses for primarily left-sided substernal chest pain with associated shortness of breath that has been persistent for the last 2 days as well. Reports she is not currently taking medications for her known history of hypertension and dyslipidemia. Denies fever, chills, diarrhea, constipation, new rash, new weakness/numbness/tingling in any extremity. Review of Systems Constitutional: denies: Fever Eyes: denies: Loss of vision Ears: denies: Loss of hearing Nose: denies: Rhinorrhea / runny nose Throat: denies: Dental pain / toothache Cardiac: reports: Chest pain / pressure Respiratory: reports: Dyspnea GI: denies: Nausea, Vomiting PD PAST MEDICAL HISTORY - Past Medical History Cardiovascular: None Respiratory: Pneumonia, Sleep apnea Endocrine/Autoimmune: None GI: Chronic diarrhea, Chronic constipation, Ulcerative colitis, Other ANALYTICAL MANAGER: None : None HEENT: Chronic vision loss, Other Psych: Depression, Anxiety, Post traumatic stress disorder Musculoskeletal: Osteoarthritis, Fibromyalgia, Fatigue, Chronic back pain Derm: Other - Past Surgical History Past Surgical History: Yes General: Colonoscopy Ortho: Other /ANALYTICAL MANAGER: section, Other HEENT: Cataracts - Present Medications Home Medications: Ambulatory Orders Medication Instructions Recorded Confirmed HYDROcod/ACETAM 5/325 [[place] 5/325] 2 tab PO BID 11/07/21 11/08/21 Oxybutynin [Ditropan] 5 mg PO DAILY 11/07/21 11/08/21 polyethylene glycoL 3350(BULK) 17 gm PO DAILY PRN #1 each 08/01/22 [Miralax] - Allergies Allergies/Adverse Reactions: Allergies Allergy/AdvReac Type Severity Reaction Status Date / Time aspirin Allergy Unknown Verified 08/01/22 14:54 duloxetine Allergy Unknown Verified 08/01/22 14:54 Iodinated Contrast Media Allergy Unknown Verified 08/01/22 14:54 NSAIDS (Non-Steroidal Allergy Unknown Verified 08/01/22 14:54 Anti-Inflamma zolpidem Allergy Unknown Verified 08/01/22 14:54 - Social History Does the pt smoke?: No Smoking Status: Never smoker Does the pt drink ETOH?: No Does the pt have substance abuse?: No - Immunizations Immunizations are current?: Yes - POLST Patient has POLST: Yes PD ED PE NORMAL - Vitals Vital signs reviewed: Yes (Patient significantly hypertensive on arrival.) - General General: Alert and oriented X 3, Other (Ill-appearing) - HEENT HEENT: Atraumatic, PERRL - Neck Neck: Supple, no meningeal sign - Cardiac Cardiac: RRR - Respiratory Respiratory: No respiratory distress - Abdomen Abdomen: Non tender - Female Female : Deferred - Rectal Rectal: Deferred - Extremities Extremities: No deformity - Neuro Neuro: Alert and oriented X 3, medical examiner 2-12 intact, No motor deficit, No sensory deficit, Normal speech Results - Vitals Vitals: Vital Signs - 24 hr 12/29/22 22:09 Temperature 35.9 C L Heart Rate 91 Respiratory 24 Rate Blood Pressure 199/121 H O2 Saturation 98 Oxygen O2 Source Room air - EKG (time done) 2221 EKG releavant findings:: EKG personally interpreted by author of this note. Relevant findings are: Sinus rhythm with rate 81 bpm. Normal axis. Normal TX, QTc intervals. Diffuse ST segment elevations inferior leads II, 3, aVF as well as precordial leads V4- V6. ST depressions noted in early precordial leads V1 V2 was well is 1 and aVL. This is acutely different from patient's baselinePrevious EKG. - Labs Labs: Laboratory Tests 12/29/22 12/29/22 12/29/22 22:30 22:30 22:30 WBC 12.4 H RBC 6.09 H Hgb 17.4 H Hct 51.7 H MCV 84.9 MCH 28.6 MCHC 33.7 RDW 12.7 Plt Count 280 MPV 9.9 Neut # (Auto) 10.6 H Lymph # (Auto) 1.1 L [place] # (Auto) 0.5 Eos # (Auto) 0.0 Baso # (Auto) 0.0 Absolute Nucleated RBC 0.00 Nucleated RBC % 0.0 PT 11.4 INR 1.0 Sodium 135 Potassium 3.8 Chloride 94 L Carbon Dioxide 26 Anion Gap 15.0 H BUN 10 Creatinine 1.0 Estimated GFR (MDRD) 54 L Glucose 272 H Calcium 9.5 Total Bilirubin 0.9 AST 55 H ALT 19 Alkaline Phosphatase 62 Total Creatine Kinase 406 H Total Protein 8.3 H Albumin 4.2 Globulin 4.1 Albumin/Globulin Ratio 1.0 Lipase 39 SARS-CoV-2 (PCR) 12/29/22 22:35 WBC RBC Hgb Hct MCV MCH MCHC RDW Plt Count MPV Neut # (Auto) Lymph # (Auto) [place] # (Auto) Eos # (Auto) Baso # (Auto) Absolute Nucleated RBC Nucleated RBC % PT INR Sodium Potassium Chloride Carbon Dioxide Anion Gap BUN Creatinine Estimated GFR (MDRD) Glucose Calcium Total Bilirubin AST ALT Alkaline Phosphatase Total Creatine Kinase Total Protein Albumin Globulin Albumin/Globulin Ratio Lipase SARS-CoV-2 (PCR) NOT DETECTED PD Medical Decision Making - ED course Complexity details: reviewed old records, reviewed results, d/w patient, d/w in home sales consultant ED course: Patient 77-year-old female presenting to the emergency department with 2 days chest pain, nausea vomiting. Hypertensive but otherwise hemodynamically stable on arrival to the emergency department. EKG shows clear ST segment elevations in the inferior and precordial leads with reciprocal changes. STEMI alert initiated. Patient reported an intolerance to NSAIDs. Aspirin and clopidogrel held. EKGs texted to and discussed directly with Dr. Wright, Who graciously agrees to accept the patient. Chest x-ray performed, per my interpretation no pneumothorax, hemothorax, obvious consolidation. Heparin bolus and drip ordered. [facility] contacted for fastest transport to facility with available cardiac catheterization capability. Receiving facility did contact us and request a Plavix load however patient was actively being boarded onto the helicopter at that time. [id number] time, 50 minutes. - Critical Care Time(min): 31 Time Includes: Direct patient care, Reassess patient, Coordinate care, Medical consult Data interpretation: Prior EKG Departure - Departure Disposition: 02 Transfer Acute Care Hosp Clinical Impression: STEMI (ST elevation myocardial infarction) Qualifiers: Involved coronary artery: unspecified coronary artery Qualified Code(s): I21.3 - ST elevation (STEMI) myocardial infarction of unspecified site Discharge Date/Time: 12/29/22 23:15
[2022-12-29] MEDS ORDERED: MORPHINE 2 MG/ML CARPUJECT IVP STA (22:35)
[2022-12-29] MEDS ORDERED: ONDANSETRON 4 MG/2 ML VIAL IVP STA (22:35)
[2022-12-29 22:39] LABS: BASOPHILS % (AUTO) 0.3 %; HCT - HEMATOCRIT 51.7 % (37.0-47.0); HGB - HEMOGLOBIN 17.4 g/dL (12.0-16.0); LYMPHOCYTES # (AUTO) 1.1 10^3/uL (1.5-3.5); LYMPHOCYTES % (AUTO) 9.2 %; MEAN CORPUSCULAR HEMOGLOBIN 28.6 pg (27.0-31.0); MEAN CORPUSCULAR HGB CONC 33.7 g/dL (32.0-36.0); MEAN CORPUSCULAR VOLUME 84.9 fL (81.0-99.0); MEAN PLATELET VOLUME 9.9 fL (7.9-10.8); MONOCYTES # (AUTO) 0.5 10^3/uL (0.0-1.0); MONOCYTES % (AUTO) 3.8 %; NEUTROPHILS # (AUTO) 10.6 10^3/uL (1.5-6.6); NEUTROPHILS % (AUTO) 86.2 %; PLT - PLATELET COUNT 280 10^3/uL (130-450); RED BLOOD COUNT 6.09 10^6/uL (4.20-5.40); RED CELL DISTRIBUTION WIDTH 12.7 % (12.0-15.0); WHITE BLOOD COUNT 12.4 x10^3/uL (4.8-10.8)
[2022-12-29 22:58] LABS: PT - PROTHROMBIN TIME 11.4 secs (9.9-12.6)
[2022-12-29] MEDS ORDERED: HEPARIN 25000UNITS/500ML (D5W) 25,000 UNIT/500 ML BAG IV SCH (23:00)
--- NOTE | 2022-12-29 23:00 | XRAY Report ---
PROCEDURE: Chest 1 View X-Ray INDICATIONS: chest pain TECHNIQUE: One view of the chest was acquired. COMPARISON: 11/22/2020 chest plain films. FINDINGS: Surgical changes and devices: None. Lungs and pleura: No pleural effusions or pneumothorax. Lungs are mildly edematous. Mediastinum: Mediastinal contours appear normal. Heart size is mildly enlarged. Bones and chest wall: No suspicious bony lesions. Overlying soft tissues appear unremarkable. IMPRESSION: Mild acute CHF. Reviewed by: Jatin Conti MD on 12/29/2022 10:58 PM PDT Approved by: Jatin Conti MD on 12/29/2022 10:58 PM PDT Station ID: [id number]
[2022-12-29 23:03] LABS: ALBUMIN 4.2 g/dL (3.2-5.5); BILIRUBIN,TOTAL 0.9 mg/dL (0.2-1.0); CALCIUM 9.5 mg/dL (8.5-10.3); POTASSIUM 3.8 mmol/L (3.5-5.0); TOTAL PROTEIN 8.3 g/dL (6.7-8.2)
== END 2022-12-29 23:15 | disposition short-term general hospital (02) ==
LOC: ED 22:05
DX: I21.3 ST elevation (STEMI) myocardial infarction of unspecified site (principal); Z20.822 Contact with and (suspected) exposure to COVID-19; I10 Essential (primary) hypertension; E78.5 Hyperlipidemia, unspecified
CPT/HCPCS: 36415; 80053; 82550; 83690; 85025; 85610; 93005; 96374; 96375; 99291

== ENCOUNTER 2023-01-17 08:00 | Outpatient (CLI) | payer MEDICARE ==
[2023-01-17 18:41] LABS: GLUCOSE, URINE (UA) NEGATIVE (NEGATIVE); KETONES,URINE (UA) 15 mg/dL (NEGATIVE); LEUKOCYTE ESTERASE, URINE NEGATIVE (NEGATIVE); NITRITE,URINE NEGATIVE (NEGATIVE); OCCULT BLOOD,URINE NEGATIVE (NEGATIVE); PH,URINE 5.5 PH (5.0-7.5); PROTEIN,URINE TRACE mg/dL (NEGATIVE); UROBILINOGEN,URINE 0.2 (NORMAL) E.U./dL (NORMAL)
[2023-01-17 18:48] LABS: BILIRUBIN,URINE NEGATIVE (NEGATIVE); CLARITY,URINE CLEAR (CLEAR); ICTOTEST,URINE NEGATIVE
== END 2023-01-17 23:59 | disposition home or self-care (01) ==
LOC: LAB 08:00
DX: N39.0 Urinary tract infection, site not specified (principal)
CPT/HCPCS: 81001; 81003; 87086

== ENCOUNTER 2023-02-19 13:46 | Outpatient (CLI) | payer MEDICARE ==
[2023-02-19 14:12] LABS: CALCIUM 8.7 mg/dL (8.5-10.3); CREATININE 1.4 mg/dL (0.4-1.0); POTASSIUM 5.2 mmol/L (3.5-5.0)
[2023-02-19 21:04] LABS: ESTIMATED AVERAGE GLUCOSE 137 mg/dL (70-100); HEMOGLOBIN A1c% 6.4 % (4.27-6.07)
== END 2023-02-19 13:47 | disposition home or self-care (01) ==
LOC: LAB 13:46
PROVIDERS: ATTEND Internal Medicine
DX: E11.9 Type 2 diabetes mellitus without complications (principal); B37.9 Candidiasis, unspecified
CPT/HCPCS: 36415; 80048; 83036

== ENCOUNTER 2023-02-21 10:14 | Emergency (ER) | payer MEDICARE ==
--- OUTSIDE RECORDS SUMMARY | 2023-02-21 10:45 | EXTERNAL MEDICAL SUMMARY RPT | Continuity of Care Document ---
Author Name Unknown Address [address] [place] [address] Phone Organization [facility] Address [address] [place] [address] Phone Care Team Providers Care Ice Sculptor Name Role Phone Unavailable Unavailable Unavailable Results/Labs test date author facility value unit interpretation Result panel 1 (unknown) (no date) (unknown) [facility] (no value) (units unknown) (unknown) Result panel 2 (unknown) (no date) (unknown) [facility] (no value) (units unknown) (unknown) Result panel 3 (unknown) (no date) (unknown) [facility] (no value) (units unknown) (unknown) Result panel 4 (unknown) (no date) (unknown) [facility] (no value) (units unknown) (unknown) Result panel 5 (unknown) (no date) (unknown) [facility] (no value) (units unknown) (unknown) Result panel 6 (unknown) (no date) (unknown) [facility] (no value) (units unknown) (unknown) Result panel 7 (unknown) (no date) (unknown) [facility] (no value) (units unknown) (unknown) Result panel 8 (unknown) (no date) (unknown) [facility] (no value) (units unknown) (unknown) Result panel 9 (unknown) (no date) (unknown) [facility] (no value) (units unknown) (unknown) Result panel 10 (unknown) (no date) (unknown) [facility] (no value) (units unknown) (unknown) Result panel 11 (unknown) (no date) (unknown) [facility] (no value) (units unknown) (unknown) Result panel 12 (unknown) (no date) (unknown) [facility] (no value) (units unknown) (unknown) Result panel 13 (unknown) (no date) (unknown) [facility] (no value) (units unknown) (unknown) Result panel 14 (unknown) (no date) (unknown) [facility] (no value) (units unknown) (unknown) Result panel 15 (unknown) (no date) (unknown) [facility] (no value) (units unknown) (unknown) Result panel 16 (unknown) (no date) (unknown) [facility] (no value) (units unknown) (unknown) Result panel 17 (unknown) (no date) (unknown) [facility] (no value) (units unknown) (unknown) Result panel 18 (unknown) (no date) (unknown) [facility] (no value) (units unknown) (unknown) Result panel 19 (unknown) (no date) (unknown) [facility] (no value) (units unknown) (unknown) Result panel 20 (unknown) (no date) (unknown) [facility] (no value) (units unknown) (unknown) Result panel 21 (unknown) (no date) (unknown) [facility] (no value) (units unknown) (unknown) Result panel 22 (unknown) (no date) (unknown) [facility] (no value) (units unknown) (unknown)
[2023-02-21] MEDS ORDERED: SODIUM CHLORIDE 0.9% 1,000 ML IV STA (11:15)
[2023-02-21 11:23] LABS: BASOPHILS % (AUTO) 0.6 %; HCT - HEMATOCRIT 37.4 % (37.0-47.0); HGB - HEMOGLOBIN 11.8 g/dL (12.0-16.0); LYMPHOCYTES # (AUTO) 0.9 10^3/uL (1.5-3.5); LYMPHOCYTES % (AUTO) 16.7 %; MEAN CORPUSCULAR HEMOGLOBIN 28.9 pg (27.0-31.0); MEAN CORPUSCULAR HGB CONC 31.6 g/dL (32.0-36.0); MEAN CORPUSCULAR VOLUME 91.4 fL (81.0-99.0); MEAN PLATELET VOLUME 11.2 fL (7.9-10.8); MONOCYTES # (AUTO) 0.5 10^3/uL (0.0-1.0); MONOCYTES % (AUTO) 8.9 %; NEUTROPHILS % (AUTO) 73.4 %; PLT - PLATELET COUNT 183 10^3/uL (130-450); RED BLOOD COUNT 4.09 10^6/uL (4.20-5.40); RED CELL DISTRIBUTION WIDTH 12.6 % (12.0-15.0); WHITE BLOOD COUNT 5.4 x10^3/uL (4.8-10.8)
[2023-02-21 11:32] LABS: ALBUMIN 3.5 g/dL (3.2-5.5); ALBUMIN/GLOBULIN RATIO 0.9 (1.0-2.2); BILIRUBIN,TOTAL 0.7 mg/dL (0.2-1.0); CALCIUM 8.6 mg/dL (8.5-10.3); CREATININE 1.4 mg/dL (0.4-1.0); POTASSIUM 4.6 mmol/L (3.5-5.0); TOTAL PROTEIN 7.3 g/dL (6.7-8.2)
[2023-02-21 12:11] LABS: INR 1.1 (0.8-1.2); PT - PROTHROMBIN TIME 12.2 secs (9.9-12.6)
--- NOTE | 2023-02-21 13:00 | CT Report ---
PROCEDURE: HEAD WO INDICATIONS: L arm/leg weak/numb TECHNIQUE: Noncontrast 4.5 mm thick angled axial sections acquired from the foramen magnum to the vertex. For r adiation dose reduction, the following was used: automated exposure control, adjustment of mA and/or kV according to patient size. COMPARISON: None. FINDINGS: Image quality: Excellent. The ventricular system and cortical sulci demonstrate atrophy, consistent for patient's stated age. There are areas of hypodensity in the periventricular and subcortical white matter. There is no acut e intra or extra-axial fluid collection. No acute hemorrhage, mass lesion or midline shift. Brainst em is unremarkable. Globes are symmetrical. Sinuses are aerated. Osseous structures are intact. IMPRESSION: 1. No acute intracranial process. 2. Moderate atrophy and chronic microvascular ischemic changes. Reviewed by: Beverley Ulloa MD on 02/21/2023 12:59 PM PDT Approved by: Beverley Ulloa MD on 02/21/2023 12:59 PM PDT Station ID: [id number]
[2023-02-21 13:23] LABS: BILIRUBIN,URINE NEGATIVE (NEGATIVE); GLUCOSE, URINE (UA) NEGATIVE (NEGATIVE); KETONES,URINE (UA) NEGATIVE (NEGATIVE); LEUKOCYTE ESTERASE, URINE NEGATIVE (NEGATIVE); NITRITE,URINE NEGATIVE (NEGATIVE); OCCULT BLOOD,URINE NEGATIVE (NEGATIVE); PH,URINE 6.5 PH (5.0-7.5); PROTEIN,URINE NEGATIVE (NEGATIVE); UROBILINOGEN,URINE 0.2 (NORMAL) E.U./dL (NORMAL)
[2023-02-21 13:24] LABS: CLARITY,URINE CLEAR (CLEAR)
[2023-02-21] MEDS ORDERED: diazePAM INJ 5 MG/ML SYRINGE IVP STA (15:04)
--- NOTE | 2023-02-21 15:56 | ED Physician Documentation ---
History of Present Illness - Stated complaint Stated Complaint: LT SIDE NUMB - Chief complaint Chief Complaint: Neuro - History obtained from History obtained from: Patient, Family - Additonal information Additional information: The patient is brought to the emergency department by her daughter for chief complaint of left hand numbness, progressing to left arm numbness, this morning. Patient states she woke up with both her left hand and her left foot numb and seemingly weak. She states she got in the shower to see if it would get better and the numbness progressed up her arm. She states she could not even lift her arm to wash her hair. The patient denies any other neurologic deficits that are new. 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 She states that she has been living with her daughter and has had an in home care team helping with her therapy and rehabilitation and has been making good progress. She has not been ill with anything else recently. She denies any chest pain or shortness of breath and states otherwise she is feeling well. She states her left foot numbness has resolved, but that her left arm still feels numb. No other complaints at this time. 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 : None HEENT: Chronic vision loss, Other Psych: Depression, Anxiety, Post traumatic stress disorder Musculoskeletal: Osteoarthritis, Fibromyalgia, Fatigue, Chronic back pain Derm: Other - Past Surgical History Past Surgical History: Yes General: Colonoscopy Ortho: Other /GREETING CARD EDITOR: section, Other HEENT: Cataracts - Present Medications Home Medications: Ambulatory Orders Medication Instructions Recorded Confirmed HYDROcod/ACETAM 5/325 [[place] 5/325] 2 tab PO BID 11/07/21 11/08/21 Oxybutynin [Ditropan] 5 mg PO DAILY 11/07/21 11/08/21 polyethylene glycoL 3350(BULK) 17 gm PO DAILY PRN #1 each 08/01/22 [Miralax] - Allergies Allergies/Adverse Reactions: Allergies Allergy/AdvReac Type Severity Reaction Status Date / Time aspirin Allergy Unknown Verified 02/21/23 10:38 duloxetine Allergy Unknown Verified 02/21/23 10:38 Iodinated Contrast Media Allergy Unknown Verified 02/21/23 10:38 NSAIDS (Non-Steroidal Allergy Unknown Verified 02/21/23 10:38 Anti-Inflamma zolpidem Allergy Unknown Verified 02/21/23 10:38 - Social History Does the pt smoke?: No Smoking Status: Never smoker Does the pt drink ETOH?: No Does the pt have substance abuse?: No - Immunizations Immunizations are current?: Yes - POLST Patient has POLST: Yes PD ED PE NORMAL - Vitals Vital signs reviewed: Yes - General General: Alert and oriented X 3, No acute distress, Well developed/nourished - HEENT HEENT: Atraumatic, PERRL, EOMI, Moist mucous membranes - Neck Neck: Supple, no meningeal sign - Cardiac Cardiac: RRR, No murmur, Strong equal pulses - Respiratory Respiratory: No respiratory distress, Clear bilaterally - Abdomen Abdomen: Soft, Non tender, Non distended - Derm Derm: Normal color, Warm and dry, No rash - Extremities Extremities: No deformity, No edema - Neuro Neuro: Alert and oriented X 3, relations director 2-12 intact, Normal speech, Other (Very mild motor and sensory deficits on the left compared to the right, mainly on the upper extremities. Patient has 5+ Strength bilaterally but is slightly weaker on the left compared to the right. No ataxia.) - Psych Psych: Normal mood, Normal affect Results - Vitals Vitals: Vital Signs - 24 hr 02/21/23 02/21/23 02/21/23 10:34 11:06 13:04 Temperature 36.6 C Heart Rate 75 62 62 Respiratory 19 16 19 Rate Blood Pressure 121/57 L 126/57 L 155/94 H O2 Saturation 96 96 97 02/21/23 15:16 Temperature Heart Rate 65 Respiratory 20 Rate Blood Pressure O2 Saturation 98 Oxygen O2 Source Room air - EKG (time done) 1043 EKG releavant findings:: EKG personally interpreted by author of this note. Relevant findings are: Rate: Rate (enter#) (65) Rhythm: NSR [place]: Normal Intervals: Normal SC QRS: Normal Ischemia: Non specific changes Compare to prior EKG: Old EKG unavailable Computer interpretation: Agree with computer - Labs Labs: Laboratory Tests 02/21/23 02/21/23 02/21/23 10:56 11:00 11:00 WBC 5.4 RBC 4.09 L Hgb 11.8 L Hct 37.4 MCV 91.4 MCH 28.9 MCHC 31.6 L RDW 12.6 Plt Count 183 MPV 11.2 H Neut # (Auto) 4.0 Lymph # (Auto) 0.9 L [place] # (Auto) 0.5 Eos # (Auto) 0.0 Baso # (Auto) 0.0 Absolute Nucleated RBC 0.00 Nucleated RBC % 0.0 PT INR Sodium 139 Potassium 4.6 Chloride 106 Carbon Dioxide 27 Anion Gap 6.0 BUN 16 Creatinine 1.4 H Estimated GFR (MDRD) 36 L Glucose 131 H POC Whole Bld Glucose 122 H Calcium 8.6 Total Bilirubin 0.7 AST 17 ALT 11 Alkaline Phosphatase 47 Total Protein 7.3 Albumin 3.5 Globulin 3.8 Albumin/Globulin Ratio 0.9 L Lipase 33 Urine Color Urine Clarity Urine pH Ur Specific [place] Urine Protein Urine Glucose (UA) Urine Ketones Urine Occult Blood Urine Nitrite Urine Bilirubin Urine Urobilinogen Ur Leukocyte Esterase Ur Microscopic Review Urine Culture Comments 02/21/23 02/21/23 11:57 13:12 WBC RBC Hgb Hct MCV MCH MCHC RDW Plt Count MPV Neut # (Auto) Lymph # (Auto) [place] # (Auto) Eos # (Auto) Baso # (Auto) Absolute Nucleated RBC Nucleated RBC % PT 12.2 INR 1.1 Sodium Potassium Chloride Carbon Dioxide Anion Gap BUN Creatinine Estimated GFR (MDRD) Glucose POC Whole Bld Glucose Calcium Total Bilirubin AST ALT Alkaline Phosphatase Total Protein Albumin Globulin Albumin/Globulin Ratio Lipase Urine Color YELLOW Urine Clarity CLEAR Urine pH 6.5 Ur Specific [place] 1.015 Urine Protein NEGATIVE Urine Glucose (UA) NEGATIVE Urine Ketones NEGATIVE Urine Occult Blood NEGATIVE Urine Nitrite NEGATIVE Urine Bilirubin NEGATIVE Urine Urobilinogen 0.2 (NORMAL) Ur Leukocyte Esterase NEGATIVE Ur Microscopic Review NOT INDICATED Urine Culture Comments NOT INDICATED - Rads (name of study) Head CT Relevant Findings:: Final report received, See rad report (No acute intracranial process.) PD Medical Decision Making - ED course Complexity details: reviewed old records, reviewed results, re-evaluated patient, considered differential, d/w patient, d/w family ED course: The patient was Given aspirin in the emergency department, as well as a dose of her Plavix, and worked up with laboratory studies, EKG, and initially, noncontrast head CT, all of which were unremarkable. The patient had a contrast allergy, so could not go through with CTAs of the head and neck. At this point, I did order MRI for her and this has just been performed at this time. We are still awaiting a read. The patient has ambulated to the bathroom while in the emergency department on a narrow-based gait. Patient is signed out to Dr. Kumar at change of shift, pending MRI report and final disposition.
--- NOTE | 2023-02-21 16:08 | MRI Report ---
PROCEDURE: BRAIN WO INDICATIONS: L arm/leg numb/weak TECHNIQUE: Noncontrast axial T1 spin echo, axial T2 fast spin echo, sagittal and axial FLAIR, coronal T2 fast sp in echo, axial gradient echo, axial diffusion and ADC through the brain. COMPARISON: Same-day head CT FINDINGS: Image quality: Good CSF spaces: Basal cisterns are patent. Lateral ventricles are symmetric. Volume: Periventricular white matter signal abnormality is commonly seen with chronic microangiopathy . Volume loss is present. These findings are mild to moderate. Brain: Stanley-white differentiation is grossly maintained. No acute intracranial hemorrhage. Punctate f oci of susceptibility may resent small prior microhemorrhages versus mineralization. Focal prominent plaque in the left vertebral artery. Craniofacial structures: No displaced fracture. Sinuses are clear. Orbits are intact. IMPRESSION: No acute infarct identified. Reviewed by: Brendon Li MD on 02/21/2023 4:07 PM PDT Approved by: Brendon Li MD on 02/21/2023 4:07 PM PDT Station ID: [id number]
[2023-02-21] MEDS ORDERED: CLOPIDOGREL 75 MG TABLET PO STA (16:14)
[2023-02-21] MEDS ORDERED: ASPIRIN CHEW 81 MG TABLET PO STA (16:14)
[2023-02-21] MEDS ORDERED: SUCRALFATE 1 GM/10 ML UDC PO STA (16:33)
--- NOTE | 2023-02-21 17:00 | ED Physician Documentation ---
ED Addendum - Addendum Addendum: 02/21/23 16:58 Patient was signed out to me by Dr. Tay awaiting MRI results. The MRI does not show any acute abnormalities. Patient's symptoms have resolved. She states she feels normal now. We will have her continue her current medications at home and follow-up with her doctor for further care. No focal neurological deficits upon reevaluation at 1650. Patient counseled regarding signs and symptoms for which I believe and urgent re-evaluation would be necessary. Patient with good understanding of and agreement to plan and is comfortable going home at this time This document was made in part using voice recognition software. While efforts are made to proofread this document, sound alike and grammatical errors may occur. Departure - Departure Disposition: 01 Home, Self Care Clinical Impression: Paresthesia, Stroke-like symptoms Condition: Good Instructions: ED Transient Ischemic Attack, ED Paraesthesias Follow-Up: your,doctor in 3 days [Other] Comments: Please follow-up with your doctor for further care. Your brain MRI today does not show any acute abnormalities. Please continue your current medications and return if you worsen.
[2023-02-21 17:16] VITALS: BP 111/98
== END 2023-02-21 17:15 | disposition home or self-care (01) ==
LOC: ED 10:14
DX: R20.2 Paresthesia of skin (principal)
CPT/HCPCS: 36415; 70450; 70551; 80053; 81003; 83690; 85025; 85610; 93005; 96374; 99283; 99284; A9270; 81001; 87086

== ENCOUNTER 2023-04-08 12:26 | Emergency (ER) | payer MEDICARE ==
[2023-04-08 12:41] VITALS: BP 150/90; O2SAT 97
--- NOTE | 2023-04-08 12:51 | ED Physician Documentation ---
History of Present Illness - Stated complaint Stated Complaint: GI - Chief complaint Chief Complaint: Abd Pain - History obtained from History obtained from: Patient - Additonal information Additional information: The patient comes to the emergency department chief complaint of constipation and rectal/abdominal pain. She states she has been struggling with constipation for a long time but ever since having an UT several months ago, she has been told not to strain when she has a bowel movement. The patient is on senna but otherwise, does not take any other stool softeners or laxatives. She states that she has been trying to push out what she feels is a mass of stool in her rectum but she has not been able to get it out. She has hemorrhoids and states her anus is painful and now swollen. She tried to do an enema but could not get the tube inside of her anus. She states she has been a little nauseated but not vomiting. She is passing flatus and a mild amount of liquid stool. No other complaints at this time. PD PAST MEDICAL HISTORY - Past Medical History Cardiovascular: None Respiratory: Pneumonia, Sleep apnea Endocrine/Autoimmune: None GI: Chronic diarrhea, Chronic constipation, Ulcerative colitis, Other RAWHIDE TRIMMER: None : None HEENT: Chronic vision loss, Other Psych: Depression, Anxiety, Post traumatic stress disorder Musculoskeletal: Osteoarthritis, Fibromyalgia, Fatigue, Chronic back pain Derm: Other - Past Surgical History Past Surgical History: Yes General: Colonoscopy Ortho: Other /RAWHIDE TRIMMER: section, Other HEENT: Cataracts - Present Medications Home Medications: Ambulatory Orders Medication Instructions Recorded Confirmed HYDROcod/ACETAM 5/325 [[place] 5/325] 2 tab PO BID 11/07/21 11/08/21 Oxybutynin [Ditropan] 5 mg PO DAILY 11/07/21 11/08/21 polyethylene glycoL 3350(BULK) 17 gm PO DAILY PRN #1 each 08/01/22 [Miralax] Docusate Sodium 250Mg Capsule 250 mg PO DAILY #30 cap 04/08/23 [Colace 250Mg Capsule] - Allergies Allergies/Adverse Reactions: Allergies Allergy/AdvReac Type Severity Reaction Status Date / Time aspirin Allergy Unknown Verified 04/08/23 12:32 duloxetine Allergy Unknown Verified 04/08/23 12:32 Iodinated Contrast Media Allergy Unknown Verified 04/08/23 12:32 NSAIDS (Non-Steroidal Allergy Unknown Verified 04/08/23 12:32 Anti-Inflamma zolpidem Allergy Unknown Verified 04/08/23 12:32 - Social History Does the pt smoke?: No Smoking Status: Never smoker Does the pt drink ETOH?: No Does the pt have substance abuse?: No - Immunizations Immunizations are current?: Yes - POLST Patient has POLST: Yes PD ED PE NORMAL - Vitals Vital signs reviewed: Yes - General General: Alert and oriented X 3, No acute distress, Well developed/nourished - HEENT HEENT: Atraumatic, PERRL, EOMI, Moist mucous membranes - Neck Neck: Supple, no meningeal sign - Cardiac Cardiac: RRR, No murmur, Strong equal pulses - Respiratory Respiratory: No respiratory distress, Clear bilaterally - Abdomen Abdomen: Soft, Non tender, Non distended - Derm Derm: Normal color, Warm and dry, No rash - Extremities Extremities: No deformity, No edema - Neuro Neuro: Alert and oriented X 3 - Psych Psych: Normal mood, Normal affect Results - Vitals Vitals: Vital Signs - 24 hr 04/08/23 12:32 Temperature 36.5 C Heart Rate 60 Respiratory 20 Rate Blood Pressure 150/90 H O2 Saturation 97 Oxygen O2 Source Room air PD Medical Decision Making - ED course Complexity details: considered differential, d/w patient ED course: Disimpaction was performed by myself and productive of some lumps of firm, claylike stool. However, the patient was noted to have a lot of stop soft stool in her rectal vault and I did discuss with her that she should be able to pass this without difficulty. No mass was palpable on exam. The patient did go to the bathroom and was able to pass quite a bit of stool here in the emergency department. I will prescribe her some Colace to add as well as the senna she is already on. We have discussed continuation of a high-fiber diet and doing home enemas as needed. We discussed the usual indications for return. Departure - Departure Disposition: 01 Home, Self Care Clinical Impression: Fecal impaction Constipation Qualifiers: Constipation type: unspecified constipation type Qualified Code(s): K59.00 - Constipation, unspecified Condition: Stable Instructions: ED Constipation, ED Impaction Fecal Treated Prescriptions: Docusate Sodium 250Mg Capsule [Colace 250Mg Capsule] 250 mg PO DAILY #30 cap Comments: A disimpaction has been performed today to help break up some of the firm, claylike stool in your rectum. Actually though, you still had quite a bit of soft stool mixed in amongst some of the chunks of more claylike stool, and this should be passable without too much difficulty. Although you have been told not to strain too hard, you also still need to perform basic bodily functions, and you will sometimes need to give a little more effort to having a bowel movement if needed. A prescription for Colace to take along with your senna has been electronically transmitted to the [facility] pharmacy in [place]. Hopefully this will be helpful in keeping your stools soft. Please continue to drink plenty of fluids and a prescription for Colace to take along with your senna has been electronically transmitted to the [facility] pharmacy in [place]. Hopefully this will be helpful in keeping your stools soft. Please continue to drink plenty of fluids and eat a high-fiber diet to encourage ease of defecation. Forms: PCP List
--- OUTSIDE RECORDS SUMMARY | 2023-04-08 13:19 | EXTERNAL MEDICAL SUMMARY RPT | Continuity of Care Document ---
Author Name Unknown Address [address] [place] [address] Phone Organization [facility] Address [address] [place] [address] Phone Care Team Providers Care Stonework Tracer Name Role Phone Unavailable Unavailable Unavailable Results/Labs test date facility value unit notes
== END 2023-04-08 13:33 | disposition home or self-care (01) ==
LOC: ED 12:26
DX: K56.41 Fecal impaction (principal); Z79.899 Other long term (current) drug therapy
CPT/HCPCS: 99282; 99283

== ENCOUNTER 2023-06-05 14:08 | Emergency (ER) | payer MEDICARE ==
[2023-06-05 14:40] VITALS: O2SAT 100
[2023-06-05 14:47] LABS: BILIRUBIN,URINE NEGATIVE (NEGATIVE); GLUCOSE, URINE (UA) NEGATIVE (NEGATIVE); KETONES,URINE (UA) NEGATIVE (NEGATIVE); LEUKOCYTE ESTERASE, URINE TRACE (NEGATIVE); NITRITE,URINE NEGATIVE (NEGATIVE); OCCULT BLOOD,URINE NEGATIVE (NEGATIVE); PROTEIN,URINE NEGATIVE (NEGATIVE); UROBILINOGEN,URINE 0.2 (NORMAL) E.U./dL (NORMAL)
--- NOTE | 2023-06-05 14:47 | ED Physician Documentation ---
History of Present Illness - Stated complaint Stated Complaint: DIZZY/BLURRY VISION - Chief complaint Chief Complaint: Neuro - History obtained from History obtained from: Patient - History of Present Illness Timing: Today Pain level max: 5 Pain level now: 0 - Additonal information Additional information: 77-year-old female presents to the emergency department stating she is a newly diagnosed diabetic. She is unclear what medication she is on, but states that she has felt lightheaded today. She states like her vision has been slightly blurry as well. Has not checked her blood sugar. No nausea or vomiting. Had a headache last night but that has resolved. No abdominal pain, chest pain, palpitations, shortness of breath. Patient also states that she has urinary frequency and burning for the past 2 days. No nausea or vomiting. 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 : None HEENT: Chronic vision loss, Other Psych: Depression, Anxiety, Post traumatic stress disorder Musculoskeletal: Osteoarthritis, Fibromyalgia, Fatigue, Chronic back pain Derm: Other - Past Surgical History Past Surgical History: Yes General: Colonoscopy Ortho: Other /GOLF CART ATTENDANT: section, Other HEENT: Cataracts - Present Medications Home Medications: Ambulatory Orders Medication Instructions Recorded Confirmed HYDROcod/ACETAM 5/325 [[place] 5/325] 2 tab PO BID 11/07/21 11/08/21 Oxybutynin [Ditropan] 5 mg PO DAILY 11/07/21 11/08/21 polyethylene glycoL 3350(BULK) 17 gm PO DAILY PRN #1 each 08/01/22 [Miralax] Docusate Sodium 250Mg Capsule 250 mg PO DAILY #30 cap 04/08/23 [Colace 250Mg Capsule] Nitrofurantoin [Macrobid] 100 mg PO BID #10 cap 06/05/23 - Allergies Allergies/Adverse Reactions: Allergies Allergy/AdvReac Type Severity Reaction Status Date / Time aspirin Allergy Unknown Verified 06/05/23 14:20 duloxetine Allergy Unknown Verified 06/05/23 14:20 Iodinated Contrast Media Allergy Unknown Verified 06/05/23 14:20 NSAIDS (Non-Steroidal Allergy Unknown Verified 06/05/23 14:20 Anti-Inflamma zolpidem Allergy Unknown Verified 06/05/23 14:20 - Social History Does the pt smoke?: No Smoking Status: Never smoker Does the pt drink ETOH?: No Does the pt have substance abuse?: No - Immunizations Immunizations are current?: Yes - POLST Patient has POLST: Yes PD ED PE NORMAL - Vitals Vital signs reviewed: Yes - General General: Alert and oriented X 3, No acute distress - HEENT HEENT: Atraumatic, PERRL, EOMI, Ears normal, Moist mucous membranes, Pharynx benign - Neck Neck: Supple, no meningeal sign, No bony TTP - Cardiac Cardiac: RRR, No murmur, Strong equal pulses - Respiratory Respiratory: No respiratory distress, Clear bilaterally - Abdomen Abdomen: Soft, Non tender, Non distended - Derm Derm: Warm and dry - Extremities Extremities: No edema, No calf tenderness / cord - Neuro Neuro: Alert and oriented X 3 - Psych Psych: Normal mood, Normal affect Results - Vitals Vitals: Vital Signs - 24 hr 06/05/23 06/05/23 14:11 14:32 Temperature 36.8 C Heart Rate 62 56 L Respiratory 19 18 Rate Blood Pressure 162/66 H 137/59 H O2 Saturation 98 100 Oxygen O2 Source Room air - Labs Labs: Laboratory Tests 06/05/23 06/05/23 06/05/23 14:23 14:51 14:51 WBC 6.3 RBC 4.33 Hgb 12.3 Hct 38.4 MCV 88.7 MCH 28.4 MCHC 32.0 RDW 12.1 Plt Count 206 MPV 9.9 Neut # (Auto) 4.1 Lymph # (Auto) 1.4 L [place] # (Auto) 0.6 Eos # (Auto) 0.1 Baso # (Auto) 0.0 Absolute Nucleated RBC 0.00 Nucleated RBC % 0.0 VBG pH VBG pCO2 VBG pO2 VBG HCO3 VBG Total CO2 VBG O2 Saturation VBG Base Excess Sodium 139 Potassium 4.1 Chloride 103 Carbon Dioxide 32 Anion Gap 4.0 L BUN 20 Creatinine 1.3 Estimated GFR (MDRD) 40 L Glucose 112 H POC Whole Bld Glucose Calcium 9.3 Total Bilirubin 0.6 AST 14 ALT 9 L Alkaline Phosphatase 59 Total Protein 6.7 Albumin 3.8 Globulin 2.9 Albumin/Globulin Ratio 1.3 Lipase 35 Urine Color YELLOW Urine Clarity CLEAR Urine pH 6.0 Ur Specific [place] 1.010 Urine Protein NEGATIVE Urine Glucose (UA) NEGATIVE Urine Ketones NEGATIVE Urine Occult Blood NEGATIVE Urine Nitrite NEGATIVE Urine Bilirubin NEGATIVE Urine Urobilinogen 0.2 (NORMAL) Ur Leukocyte Esterase TRACE H Urine RBC None Seen Urine WBC 4-5 Ur Epithelial Cells FEW Transitional Ur Squamous Epith Cells FEW Squamous Urine Bacteria Rare Ur Microscopic Review INDICATED Urine Culture Comments INDICATED Serum Ketones NEGATIVE 06/05/23 06/05/23 14:51 15:01 WBC RBC Hgb Hct MCV MCH MCHC RDW Plt Count MPV Neut # (Auto) Lymph # (Auto) [place] # (Auto) Eos # (Auto) Baso # (Auto) Absolute Nucleated RBC Nucleated RBC % VBG pH 7.349 VBG pCO2 49.6 VBG pO2 31.7 VBG HCO3 26.7 VBG Total CO2 28.2 VBG O2 Saturation 60.8 VBG Base Excess 0.4 Sodium Potassium Chloride Carbon Dioxide Anion Gap BUN Creatinine Estimated GFR (MDRD) Glucose POC Whole Bld Glucose 117 H Calcium Total Bilirubin AST ALT Alkaline Phosphatase Total Protein Albumin Globulin Albumin/Globulin Ratio Lipase Urine Color Urine Clarity Urine pH Ur Specific [place] Urine Protein Urine Glucose (UA) Urine Ketones Urine Occult Blood Urine Nitrite Urine Bilirubin Urine Urobilinogen Ur Leukocyte Esterase Urine RBC Urine WBC Ur Epithelial Cells Ur Squamous Epith Cells Urine Bacteria Ur Microscopic Review Urine Culture Comments Serum Ketones PD Medical Decision Making - ED course Complexity details: reviewed results, re-evaluated patient, considered differential, d/w patient ED course: No significant laboratory abnormalities. No chest pain. No shortness of breath. Does appear to have a urinary tract infection and we will place her on Macrobid for this. She is symptomatic as well. Patient is asymptomatic in the emergency department. She is requesting to go home at this time. GCS 15. Normal neuro exam. No indication for emergent head CT. Patient counseled regarding signs and symptoms for which I believe and urgent re-evaluation would be necessary. Patient with good understanding of and agreement to plan and is comfortable going home at this time This document was made in part using voice recognition software. While efforts are made to proofread this document, sound alike and grammatical errors may occur. Departure - Departure Disposition: 01 Home, Self Care Clinical Impression: UTI (urinary tract infection) Qualifiers: Urinary tract infection type: acute cystitis Hematuria presence: without hematuria Qualified Code(s): N30.00 - Acute cystitis without hematuria Condition: Good Instructions: ED UTI Cystitis Female Follow-Up: Gina Mathew MD [Primary Care Provider] - Within 1 week Prescriptions: Nitrofurantoin [Macrobid] 100 mg PO BID #10 cap Comments: [facility] [place]. Please take all antibiotics until gone. Please return if you worsen. It appears that you have a bladder infection today. Forms: PCP List
[2023-06-05 14:51] LABS: CLARITY,URINE CLEAR (CLEAR)
[2023-06-05 15:07] LABS: BASOPHILS % (AUTO) 0.5 %; EOSINOPHILS # (AUTO) 0.1 10^3/uL (0.0-0.7); EOSINOPHILS % (AUTO) 1.4 %; HCT - HEMATOCRIT 38.4 % (37.0-47.0); HGB - HEMOGLOBIN 12.3 g/dL (12.0-16.0); LYMPHOCYTES # (AUTO) 1.4 10^3/uL (1.5-3.5); LYMPHOCYTES % (AUTO) 22.5 %; MEAN CORPUSCULAR HEMOGLOBIN 28.4 pg (27.0-31.0); MEAN CORPUSCULAR VOLUME 88.7 fL (81.0-99.0); MEAN PLATELET VOLUME 9.9 fL (7.9-10.8); MONOCYTES # (AUTO) 0.6 10^3/uL (0.0-1.0); MONOCYTES % (AUTO) 10.1 %; NEUTROPHILS # (AUTO) 4.1 10^3/uL (1.5-6.6); NEUTROPHILS % (AUTO) 65.2 %; PLT - PLATELET COUNT 206 10^3/uL (130-450); RED BLOOD COUNT 4.33 10^6/uL (4.20-5.40); RED CELL DISTRIBUTION WIDTH 12.1 % (12.0-15.0); VBG BASE EXCESS 0.4 mmol/L (-2 - +2); VBG HCO3 26.7 mmol/L (23-28); VBG OXYGEN SATURATION 60.8 % (60-80); VBG PCO2 49.6 mmHg (41-51); VBG PH 7.349 (7.31-7.41); VBG PO2 31.7 mmHg (25-47); VBG TOTAL CO2 28.2 mmol/L (24-29); WHITE BLOOD COUNT 6.3 x10^3/uL (4.8-10.8)
[2023-06-05 15:12] LABS: KETONES, SERUM (ACETEST) NEGATIVE (NEGATIVE)
[2023-06-05 15:15] LABS: RBC,URINE None Seen /HPF (0-5)
[2023-06-05 15:16] LABS: BACTERIA,URINE Rare /HPF (None Seen); EPITHELIAL CELLS,UR FEW Transitional /HPF (<= Few); SQUAMOUS EPITHELIAL CELL,UR FEW Squamous (<= Few)
[2023-06-05 15:21] LABS: ALBUMIN 3.8 g/dL (3.2-5.5); ALBUMIN/GLOBULIN RATIO 1.3 (1.0-2.2); ALKALINE PHOSPHATASE 59 IU/L (42-121); ALT ALANINE AMINOTRANSFERASE 9 IU/L (10-60); AST ASPARTATE AMINOTRANSFERASE 14 IU/L (10-42); BILIRUBIN,TOTAL 0.6 mg/dL (0.2-1.0); BUN - BLOOD UREA NITROGEN 20 mg/dL (6-20); CALCIUM 9.3 mg/dL (8.5-10.3); CARBON DIOXIDE - CO2 32 mmol/L (21-32); CHLORIDE 103 mmol/L (101-111); CREATININE 1.3 mg/dL (0.6-1.3); GFR - MDRD 40 (>89); GLUCOSE 112 mg/dL (74-104); LIPASE 35 U/L (11-82); POTASSIUM 4.1 mmol/L (3.5-4.5); SODIUM 139 mmol/L (135-145); TOTAL PROTEIN 6.7 g/dL (6.4-8.9)
[2023-06-05 16:11] VITALS: BP 136/60
== END 2023-06-05 16:02 | disposition home or self-care (01) ==
LOC: ED 14:08
DX: N30.00 Acute cystitis without hematuria (principal); Z79.899 Other long term (current) drug therapy
CPT/HCPCS: 36415; 80053; 81001; 81003; 82009; 82803; 83690; 85025; 87086; 99283

== ENCOUNTER 2023-09-21 12:51 | Outpatient (CLI) | payer MEDICARE ==
[2023-09-21 13:05] LABS: HGB - HEMOGLOBIN 13.3 g/dL (12.0-16.0); MEAN CORPUSCULAR HEMOGLOBIN 28.9 pg (27.0-31.0); MEAN CORPUSCULAR HGB CONC 32.4 g/dL (32.0-36.0); MEAN CORPUSCULAR VOLUME 88.9 fL (81.0-99.0); MEAN PLATELET VOLUME 9.7 fL (7.9-10.8); RED BLOOD COUNT 4.61 10^6/uL (4.20-5.40); RED CELL DISTRIBUTION WIDTH 13.1 % (12.0-15.0); WHITE BLOOD COUNT 6.2 x10^3/uL (4.8-10.8)
[2023-09-21 13:19] LABS: CALCIUM 9.5 mg/dL (8.5-10.3); CREATININE 1.5 mg/dL (0.6-1.3); POTASSIUM 4.6 mmol/L (3.5-4.5)
== END 2023-09-21 12:52 | disposition home or self-care (01) ==
LOC: LAB 12:51
DX: Z09 Encounter for follow-up examination after completed treatment for conditions other than malignant neoplasm (principal); Z95.2 Presence of prosthetic heart valve
CPT/HCPCS: 36415; 80048; 85027

== ENCOUNTER 2023-10-16 11:01 | Outpatient (CLI) | payer MEDICARE ==
[2023-10-16 11:17] LABS: BASOPHILS % (AUTO) 0.5 %; EOSINOPHILS # (AUTO) 0.1 10^3/uL (0.0-0.7); EOSINOPHILS % (AUTO) 2.3 %; HCT - HEMATOCRIT 40.5 % (37.0-47.0); HGB - HEMOGLOBIN 12.7 g/dL (12.0-16.0); LYMPHOCYTES # (AUTO) 1.2 10^3/uL (1.5-3.5); LYMPHOCYTES % (AUTO) 19.4 %; MEAN CORPUSCULAR HEMOGLOBIN 28.9 pg (27.0-31.0); MEAN CORPUSCULAR HGB CONC 31.4 g/dL (32.0-36.0); MEAN PLATELET VOLUME 9.6 fL (7.9-10.8); MONOCYTES # (AUTO) 0.5 10^3/uL (0.0-1.0); NEUTROPHILS # (AUTO) 4.2 10^3/uL (1.5-6.6); NEUTROPHILS % (AUTO) 69.6 %; PLT - PLATELET COUNT 216 10^3/uL (130-450); RED CELL DISTRIBUTION WIDTH 12.8 % (12.0-15.0)
[2023-10-16 11:31] LABS: ALBUMIN/GLOBULIN RATIO 1.5 (1.0-2.2); BILIRUBIN,TOTAL 0.6 mg/dL (0.2-1.0); CALCIUM 9.5 mg/dL (8.5-10.3); CREATININE 1.5 mg/dL (0.6-1.3); POTASSIUM 4.6 mmol/L (3.5-4.5); TOTAL PROTEIN 6.7 g/dL (6.4-8.9)
== END 2023-10-16 11:02 | disposition home or self-care (01) ==
LOC: LAB 11:01
PROVIDERS: ATTEND Physician Assistant
DX: I25.10 Atherosclerotic heart disease of native coronary artery without angina pectoris (principal); N28.9 Disorder of kidney and ureter, unspecified
CPT/HCPCS: 36415; 80053; 85025

== ENCOUNTER 2023-11-10 12:38 | Emergency (ER) | payer MEDICARE ==
--- NOTE | 2023-11-10 13:58 | ED Physician Documentation ---
History of Present Illness - Stated complaint Stated Complaint: GI - Chief complaint Chief Complaint: Abd Pain - History obtained from History obtained from: Patient - History of Present Illness Timing: How many days ago (5) - Additonal information Additional information: 77-year-old Paulina Guerra has been constipated for the past 5 days and she feels there is some swelling to her rectum and she is getting some liquid stool out around some hard stool that she can feel it is in there. She has had this happen to her twice previously she has had to be disimpacted previously.She reports that she recently has had a pacemaker placed and a valve replacement done at [facility] after she had an OH. Review of Systems Constitutional: denies: Fever Nose: denies: Congestion Respiratory: denies: Cough GI: reports: Constipation. 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: None : None HEENT: Chronic vision loss, Other Psych: Depression, Anxiety, Post traumatic stress disorder Musculoskeletal: Osteoarthritis, Fibromyalgia, Fatigue, Chronic back pain Derm: Other - Past Surgical History Past Surgical History: Yes General: Colonoscopy Ortho: Other /EVENT SALES REPRESENTATIVE: section, Other HEENT: Cataracts - Present Medications Home Medications: Ambulatory Orders Medication Instructions Recorded Confirmed HYDROcod/ACETAM 5/325 [[place] 5/325] 2 tab PO BID 11/07/21 11/08/21 Oxybutynin [Ditropan] 5 mg PO DAILY 11/07/21 11/08/21 polyethylene glycoL 3350(BULK) 17 gm PO DAILY PRN #1 each 08/01/22 [Miralax] Docusate Sodium 250Mg Capsule 250 mg PO DAILY #30 cap 04/08/23 [Colace 250Mg Capsule] Nitrofurantoin [Macrobid] 100 mg PO BID #10 cap 06/05/23 - Allergies Allergies/Adverse Reactions: Allergies Allergy/AdvReac Type Severity Reaction Status Date / Time aspirin Allergy Unknown Verified 11/10/23 12:50 duloxetine Allergy Unknown Verified 11/10/23 12:50 Iodinated Contrast Media Allergy Unknown Verified 11/10/23 12:50 NSAIDS (Non-Steroidal Allergy Unknown Verified 11/10/23 12:50 Anti-Inflamma zolpidem Allergy Unknown Verified 11/10/23 12:50 - Social History Does the pt smoke?: No Smoking Status: Never smoker Does the pt drink ETOH?: No Does the pt have substance abuse?: No - Immunizations Immunizations are current?: Yes - POLST Patient has POLST: Yes PD ED PE NORMAL - Vitals Vital signs reviewed: Yes (tachy and hypertensive ) - General General: Alert and oriented X 3, No acute distress, Well developed/nourished - HEENT HEENT: Atraumatic, PERRL, EOMI - Respiratory Respiratory: No respiratory distress - Abdomen Abdomen: Soft, Non tender - Rectal Rectal: Other (with Amirah as standby the rectum is examined. There are inflammed external hemorrhoids and firm stool in the vault. Some of this is removed manually with pain to the patient. ) - Derm Derm: Normal color, Warm and dry, No rash - Extremities Extremities: No deformity, No edema - Neuro Neuro: Alert and oriented X 3, makeup artist 2-12 intact, No motor deficit, No sensory d eficit, Normal speech Eye Opening: Spontaneous Motor: Obeys Commands Verbal: Oriented GCS Score: 15 - Psych Psych: Normal mood, Normal affect Results - Vitals Vitals: Vital Signs - 24 hr 11/10/23 11/10/23 12:45 14:49 Temperature 36.4 C L Heart Rate 132 H 128 H Respiratory 24 20 Rate Blood Pressure 135/88 H 146/87 H O2 Saturation 98 100 Oxygen O2 Source Room air PD Medical Decision Making - ED course Complexity details: reviewed results, re-evaluated patient, considered differential, d/w patient ED course: 77-year-old female with a chief complaint of constipation does have hard stool right at the opening and she has significant pain with attempting to manually disimpact this. A oil retention enema only relieves a slight amount of constipation. The soapsuds enema is eventually successful in relieving constipation generally. Patient is improved. I took this time at the end of the visit to evaluate the patient for the potential of Parkinson's as the amount of constipation she had a significant. I did find that she had some cogwheeling of the right upper extremity and recommended she follow-up with her primary care doctor for evaluation of Parkinson's. Departure - Departure Disposition: 01 Home, Self Care Clinical Impression: Constipation Qualifiers: Constipation type: unspecified constipation type Qualified Code(s): K59.00 - Constipation, unspecified Condition: Stable Instructions: ED Constipation Follow-Up: Gina Mathew MD [Primary Care Provider] - Comments: Paulina, today you were significantly constipated, requiring an enema to relieve this. On physical exam today I did note that you have some cogwheeling to your right arm. This can be an early symptom of Parkinson's and significant constipation like what you have experienced today can be an early symptom of Parkinson's as well. My recommendation is to follow-up with Dr. Mathew for thorough examination and referral to neurology. This is a progressive disease and symptoms may develop over time. You may not require specific treatment at this time. For the constipation I do recommend taking a dose of MiraLAX regularly to retrain your colon. You may be able to stop this after 2 to 4 weeks. Forms: PCP List Discharge Date/Time: 11/10/23 16:46
[2023-11-10 16:46] VITALS: BP 146/87; O2SAT 100
== END 2023-11-10 16:46 | disposition home or self-care (01) ==
LOC: ED 12:38
DX: K59.00 Constipation, unspecified (principal); Z79.899 Other long term (current) drug therapy
CPT/HCPCS: 99283

== ENCOUNTER 2024-02-11 16:23 | Outpatient (CLI) | payer MEDICARE ==
[2024-02-11 16:38] LABS: BASOPHILS % (AUTO) 0.5 %; EOSINOPHILS # (AUTO) 0.2 10^3/uL (0.0-0.7); EOSINOPHILS % (AUTO) 2.9 %; HCT - HEMATOCRIT 40.3 % (37.0-47.0); HGB - HEMOGLOBIN 12.7 g/dL (12.0-16.0); LYMPHOCYTES # (AUTO) 1.2 10^3/uL (1.5-3.5); LYMPHOCYTES % (AUTO) 20.8 %; MEAN CORPUSCULAR HEMOGLOBIN 28.9 pg (27.0-31.0); MEAN CORPUSCULAR HGB CONC 31.5 g/dL (32.0-36.0); MEAN CORPUSCULAR VOLUME 91.8 fL (81.0-99.0); MEAN PLATELET VOLUME 9.5 fL (7.9-10.8); MONOCYTES # (AUTO) 0.6 10^3/uL (0.0-1.0); MONOCYTES % (AUTO) 10.1 %; NEUTROPHILS # (AUTO) 3.8 10^3/uL (1.5-6.6); NEUTROPHILS % (AUTO) 65.4 %; PLT - PLATELET COUNT 210 10^3/uL (130-450); RED BLOOD COUNT 4.39 10^6/uL (4.20-5.40); RED CELL DISTRIBUTION WIDTH 12.4 % (12.0-15.0); WHITE BLOOD COUNT 5.9 x10^3/uL (4.8-10.8)
[2024-02-11 16:57] LABS: ALBUMIN/GLOBULIN RATIO 1.3 (1.0-2.2); BILIRUBIN,TOTAL 0.5 mg/dL (0.2-1.0); CALCIUM 9.1 mg/dL (8.5-10.3); CREATININE 1.4 mg/dL (0.6-1.3); POTASSIUM 4.4 mmol/L (3.5-4.5)
[2024-02-11 17:08] LABS: THYROID STIMULATING HORMONE 1.65 uIU/mL (0.34-5.60)
== END 2024-02-11 16:24 | disposition home or self-care (01) ==
LOC: LAB 16:23
PROVIDERS: ATTEND Internal Medicine Cardiovascular Disease
DX: R06.02 Shortness of breath (principal)
CPT/HCPCS: 36415; 80053; 83880; 84443; 85025

== ENCOUNTER 2024-04-25 13:11 | Emergency (ER) | payer MEDICARE ==
--- NOTE | 2024-04-25 13:40 | ED Physician Documentation ---
PD HPI LOWER EXT INJURY - Stated complaint Stated Complaint: RT HIP PX - Chief complaint Chief Complaint: Ext Problem - Additional information Additional information: 78-year-old female morbidly obese with history of AR, pneumonia, CVA, sleep apnea, ulcerative colitis presents emergency department for right hip pain. Patient says that she has been to the emergency department multiple times for this pain before in the past she has been followed up with her primary care provider but feels like she needs a new primary care provider because she does not feel like her concerns are being met. Patient says that the Hydrocodone that she takes for her fibromyalgia has not been helping and she is to the point where she is having hard time bending over to her right buttock/hip region where she feels like she cannot sit down to urinate. 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: None : None HEENT: Chronic vision loss, Other Psych: Depression, Anxiety, Post traumatic stress disorder Musculoskeletal: Osteoarthritis, Fibromyalgia, Fatigue, Chronic back pain Derm: Other - Past Surgical History Past Surgical History: Yes General: Colonoscopy Ortho: Other /INVESTMENT BANKING ASSOCIATE: section, Other HEENT: Cataracts - Present Medications Home Medications: Ambulatory Orders Medication Instructions Recorded Confirmed HYDROcod/ACETAM 5/325 [[place] 5/325] 2 tab PO BID 11/07/21 11/08/21 Oxybutynin [Ditropan] 5 mg PO DAILY 11/07/21 11/08/21 polyethylene glycoL 3350(BULK) 17 gm PO DAILY PRN #1 each 08/01/22 [Miralax] Docusate Sodium 250Mg Capsule 250 mg PO DAILY #30 cap 04/08/23 [Colace 250Mg Capsule] Nitrofurantoin [Macrobid] 100 mg PO BID #10 cap 06/05/23 Cyclobenzaprine [Flexeril] 10 mg PO TID PRN 6 Days #10 tablet 04/25/24 - Allergies Allergies/Adverse Reactions: Allergies Allergy/AdvReac Type Severity Reaction Status Date / Time aspirin Allergy Unknown Verified 04/25/24 13:24 duloxetine Allergy Unknown Verified 04/25/24 13:24 Iodinated Contrast Media Allergy Unknown Verified 04/25/24 13:24 NSAIDS (Non-Steroidal Allergy Unknown Verified 04/25/24 13:24 Anti-Inflamma zolpidem Allergy Unknown Verified 04/25/24 13:24 - Social History Does the pt smoke?: No Smoking Status: Never smoker Does the pt drink ETOH?: No Does the pt have substance abuse?: No - Immunizations Immunizations are current?: Yes - POLST Patient has POLST: Yes PD ED PE NORMAL - Vitals Vital signs reviewed: Yes - General General: Alert and oriented X 3, No acute distress, Well developed/nourished - Abdomen Abdomen: Normal bowel sounds, Soft - Back Back: No CVA TTP, No spinal TTP - Derm Derm: Normal color, Warm and dry, No rash - Extremities Extremities: Other (RLE: tenderness with flexion and extension of the hip, tenderness with palpation of the left hip) Results - Vitals Vitals: Vital Signs - 24 hr 04/25/24 04/25/24 13:25 14:59 Temperature 36.4 C L 36.5 C Heart Rate 85 82 Respiratory 17 16 Rate Blood Pressure 165/94 H 140/88 H O2 Saturation 98 100 Oxygen O2 Source Room air - Rads (name of study) Right hip x-rays Relevant Findings:: Final report received, EMP independent interpretation of test, Other (No acute bony abnormality) PD Medical Decision Making - ED course ED course: 78-year-old female presents emergency department for ongoing right hip pain not due to any injury or trauma. No fevers or chills or other signs of possible infection. X-rays are complete for further evaluation for possible lesions or nontraumatic fracture and there is no fractures visualized on x-ray she does appear to have quite a bit of arthritis on her hips. She was given a Toradol shot as well as Flexeril here in the emergency department and did report significant improvement of symptoms and pain. Prescription of Flexeril was sent to her preferred pharmacy and she was told that she needs to follow-up with primary care provider for physical therapy referral as well as an orthopedic referral to establish care with orthopedic surgeon at [facility] as well as a new primary care provider also at [facility] for further evaluation of this ongoing right hip pain. Return precautions given all questions answered patient safe f or discharge Departure - Departure Disposition: 01 Home, Self Care Clinical Impression: Hip arthritis Instructions: Hip Abduction External Rotation, Hip Adductor Stretch Prescriptions: Cyclobenzaprine [Flexeril] 10 mg PO TID PRN 6 Days #10 tablet PRN Reason: Spasms Comments: Thank you for trusting us with your care. We have completed x-rays and it appears that you have arthritis in your hip which is very important that you start working on your diet and weight and follow-up with an orthopedic surgeon outpatient for further evaluation. Please come back in if you are starting develop fevers or chills or any other concerning symptoms. Forms: PCP List Discharge Date/Time: 04/25/24 14:59
[2024-04-25] MEDS: CYCLOBENZAPRINE 10 MG TABLET PO STA (14:17)
[2024-04-25] MEDS: KETOROLAC 30 MG/ML VIAL IM STA (14:17)
--- NOTE | 2024-04-25 14:33 | XRAY Report ---
PROCEDURE: Hip w/Pelvis 2-3V RT INDICATIONS: severe right hip pain TECHNIQUE: 3 views of the hip were acquired. COMPARISON: None. FINDINGS: Bones: No fractures or dislocations. No suspicious bony lesions. Age-appropriate degenerative shore es are seen. Soft tissues: No suspicious soft tissue calcifications or masses. Atherosclerotic calcification is s een. IMPRESSION: No acute bony abnormality is seen on these plain films. If it would be helpful for clinical management decision making, please consider a dedicated hip MRI f or further evaluation (assuming that there is no contraindication). If there is strong clinical conc juliocesar for a labral abnormality, then this should be performed according to the arthrogram protocol. Reviewed by: Kendell Alexandre MD on 04/25/2024 1:32 PM [facility] Approved by: Kendell Alexandre MD on 04/25/2024 1:32 PM [facility] Station ID: [id number]
[2024-04-25 15:04] VITALS: BP 140/88; O2SAT 100
== END 2024-04-25 14:59 | disposition home or self-care (01) ==
LOC: ED 13:11
DX: M16.11 Unilateral primary osteoarthritis, right hip (principal)
CPT/HCPCS: 73502; 96372; 99283; 99284; A9270